=== PATIENT | female | born 1990 | race Caucasian/White ===

== ENCOUNTER 2019-01-05 14:59 | Inpatient (IN) ==
[2019-01-05] MEDS ORDERED: SODIUM CHLORIDE 0.9% 1000ML 1,000 ML IV ONE (15:41)
[2019-01-05] MEDS ORDERED: ONDANSETRON INJ 2 MG/ML 2 ML VIAL IV STA (16:02)
[2019-01-05] MEDS ORDERED: MoRPHine SULFATE 4 MG/ML 1 ML CARP\\VIAL IV STA ×2 (16:02→21:18)
[2019-01-05] MEDS ORDERED: FLUCONAZOLE 200 MG/100 ML BAG IV SCH (16:15)
--- NOTE | 2019-01-05 16:20 | Emergency Department Note ---
History of Present Illness General Chief complaint: Dental/Oral Stated complaint: REFERRED FOR MOUTH PAIN, UNABLE TO EAT/DRINK History of Present Illness Maximum Pain Intensity: 10 This patient is a 28-year-old female, G2, P1 32 weeks , the presents to the emergency department with her mother for evaluation of severe pain and a film in her mouth that has been going on for the last 3 days. The patient saw her dentist and primary care physician. There were thoughts that this could possibly be a dental abscess, yeast or a viral infection. She has been put on nystatin swish and swallow, penicillin and acyclovir with no improvement. The patient has also been running a fever of 102 F. She has been taking Tylenol for pain. The patient has a history of cerebral palsy. The patient's mother admits that she does not brush her teeth very often. The pain is now going down her throat. Home Medications Home Medications Medication Instructions Recorded Confirmed Type PNV,calcium [id number] acid 1 tab PO QPM 01/05/19 01/05/19 History [ Plus (calcium carb)] albuterol sulfate 2.5 mg INHALATION Q4H PRN 01/05/19 01/05/19 History budesonide [Pulmicort] 2 puff INHALATION BID PRN 01/05/19 01/05/19 History fluoxetine 30 mg PO HS 01/05/19 01/05/19 History fluticasone propionate [Flovent 1 puff INHALATION Q12H 01/05/19 01/05/19 History HFA] folic acid 2 mg PO QPM 01/05/19 01/05/19 History levetiracetam [Keppra] 1,500 mg PO BID 01/05/19 01/05/19 History magnesium oxide 400 mg PO QPM 01/05/19 01/05/19 History nystatin 1 dose MUCOUS MEMBRANE QID 01/05/19 01/05/19 History Allergies Allergy/AdvReac Type Severity Reaction Status Date / Time Sulfa (Sulfonamide Allergy Mild Rash Verified 01/05/19 23:56 Antibiotics) escitalopram [From Lexapro] Allergy Rash Verified 01/05/19 23:56 CEFZIL Allergy Mild Swelling Uncoded 01/05/19 23:56 of Lip/Tongue/Throat Past Med/Surg History Medical History Cerebral palsy Social History Preferred Language: Cameroonian Communication Ability: Impaired Poly Area Supervisor Required: No Beliefs That Will Affect Care: None Current Living Situation: Family Other Information That Helps Us Care for You: No Feels Safe at Home: Yes Safety Concerns: Feels Safe At This Time Smoking Status: Never smoker Do You Dip or Chew Tobacco: No Second Hand Exposure: No Tobacco Cessation Education Requested by Patient: No Hx Alcohol Use: No Hx Substance Use: No Review of Systems A total of 10 systems reviewed and were otherwise negative Physical Exam Vital Signs Vital Signs - 24 hr 01/05/19 15:03 01/05/19 18:22 01/05/19 21:30 Temperature 36.9 C Temperature Source Axillary Sepsis Recent Fever Within 48 Hours No Sepsis New/Unexplained Change in Mental Status No Sepsis Action Taken by Nursing No Action Required Pulse Rate 118 H Pulse Rate [Right Finger] 96 H 99 H Pulse Rhythm Regular Pulse Rhythm [Right Finger] Pulse Strength Normal Pulse Strength [Right Finger] Respiratory Rate 20 20 20 Respiratory Effort / Characteristics Non-Labored Spontaneous Non-Labored Respiratory Depth Normal Normal Respiratory Pattern Regular Blood Pressure 108/70 Blood Pressure [Right Arm] 120/75 92/60 L Blood Pressure Mean 82 Blood Pressure Mean [Right Arm] 90 70 Blood Pressure Position Sitting Blood Pressure Position [Right Arm] Pulse Oximetry 95 97 95 Oxygen Delivery Method Room Air Room Air Room Air 01/05/19 23:11 01/05/19 23:53 01/06/19 00:19 Temperature 36.8 C 36.8 C Temperature Source Axillary Sepsis Recent Fever Within 48 Hours Sepsis New/Unexplained Change in Mental Status Sepsis Action Taken by Nursing Pulse Rate 99 H 103 H Pulse Rate [Right Finger] 103 H Pulse Rhythm Pulse Rhythm [Right Finger] Regular Pulse Strength Pulse Strength [Right Finger] Normal Respiratory Rate 20 18 18 Respiratory Effort / Characteristics Non-Labored Respiratory Depth Normal Respiratory Pattern Blood Pressure 91/52 L 106/61 Blood Pressure [Right Arm] 106/61 Blood Pressure Mean Blood Pressure Mean [Right Arm] 76 Blood Pressure Position Blood Pressure Position [Right Arm] Sitting Pulse Oximetry 95 99 Oxygen Delivery Method Room Air Room Air Constitutional WD/WN, vitals as above Eyes EOM intact bilaterally ENMT There is a white plaque noted to the tongue and gums that is diffuse throughout the mouth and buccal area. The gums themselves are friable. There is a foul odor noted. Uvula midline. Neck trachea midline Respiratory normal respiratory effort, lungs clear to auscultation Cardiovascular RRR, no murmur, no edema Gastrointestinal (Abdomen) normal bowel sounds, soft, nontender, no hepatosplenomegaly Musculoskeletal Strength 4/5 throughout. Skin no rashes, warm and dry Neurologic Alert and oriented x3. Movements slightly choreal-like in nature Psychiatric Acting appropriately Lymphatic Lymphadenopathy in the anterior cervical chain and submandibular region bilaterally. Course Patient was seen and examined Vital signs including blood pressure were reviewed medications list was verified with patient Labs were obtained, and a saline lock was established The patient was ordered morphine 4 mg IV, fluconazole 200 mg IV, Zofran 4 mg IV and 1 L of normal saline The patient was reevaluated and more comfortable. We discussed her work-up. She and her mother voiced understanding, and were in agreement with the plan. The case was discussed with obstetrics. They agreed to admit the patient. The patient required 1 more additional dose of morphine 4 mill grams IV for pain She will be admitted for further treatment Consultations Consultation #1: Dr. Teixeira Administered Medications Fluconazole (Diflucan) 200 mg in 100 mls @ 100 mls/hr IV UD LUCIE Stop: 01/15/19 16:14 Last Infusion: 01/05/19 18:23 Dose: 0 mls/hr Documented by: [id number] Admin: 01/05/19 16:49 Dose: 100 mls/hr Documented by: [id number] Discontinued Medications Sodium Chloride (Nss 1000ml) 1,000 mls @ 999 mls/hr IV .Q1H1M ONE Stop: 01/05/19 16:41 Last Infusion: 01/05/19 17:34 Dose: 0 mls/hr Documented by: [id number] Admin: 01/05/19 16:31 Dose: 999 mls/hr Documented by: [id number] Morphine Sulfate (Morphine Sulfate) 4 mg IV NOW STA Stop: 01/05/19 16:03 Last Admin: 01/05/19 16:32 Dose: 4 mg Documented by: [id number] Morphine Sulfate (Morphine Sulfate) 4 mg IV NOW STA Stop: 01/05/19 21:19 Last Admin: 01/05/19 21:28 Dose: 4 mg Documented by: [id number] Ondansetron HCl (Zofran) 4 mg IV NOW STA Stop: 01/05/19 16:03 Last Admin: 01/05/19 16:31 Dose: 4 mg Documented by: [id number] Medical Decision Making Medical Records Attestation: I reviewed the patient's medical records. Home Medications Current Medication List: was personally reviewed by me Laboratory Data Attestation: I reviewed the patient's lab results. Result diagrams: 01/05/19 16:01 01/05/19 16:01 Lab Results 01/05/19 01/05/19 01/05/19 Range/Units 16:01 16:01 16:01 WBC 6.96 (4.8-10.8) K/uL RBC 3.86 L (4.2-5.4) M/uL Hgb 10.7 L (12.0-16.0) g/dL Hct 32.4 L (37-47) % MCV 83.9 (80-100) fL MCH 27.7 (25-34) pg MCHC 33.0 (32-36) g/dL RDW Std Deviation 40.9 (36.4-46.3) fL RDW Coeff of Brenda 13.6 (11.5-14.5) % Plt Count 220 (130-400) K/uL MPV 10.5 H (7.4-10.4) fL Immature Gran % (Auto) 2.2 % Neut % (Auto) 40.1 % Lymph % (Auto) 36.6 % Nolan % (Auto) 19.1 % Eos % (Auto) 0.0 % Baso % (Auto) 2.0 % Immature Gran # (Auto) 0.15 H (0.00-0.02) K/uL Neut # (Auto) 2.79 (1.4-6.5) K/uL Lymph # (Auto) 2.55 (1.2-3.4) K/uL Nolan # (Auto) 1.33 H (0.11-0.59) K/uL Eos # (Auto) 0.00 (0-0.5) K/uL Baso # (Auto) 0.14 (0-0.2) K/uL Absolute Nucleated RBC 0.02 H (0-0) K/uL Nucleated RBC % (auto) 0.2 % Sodium 137 (136-145) mmol/L Potassium 3.4 L (3.5-5.1) mmol/L Chloride 102 (98-107) mmol/L Carbon Dioxide 29 (21-32) mmol/L Anion Gap 6.0 (3-11) BUN 2 L (7-18) mg/dl Creatinine 0.44 L (0.6-1.2) mg/dl Est Cr Clr Drug Dosing 132.8 ml/min Est GFR ( Amer) > 150.0 Est GFR (Non-Af Amer) 137.4 BUN/Creatinine Ratio 5.2 L (10-20) Glucose 81 (70-99) mg/dl Calcium 8.3 L (8.5-10.1) mg/dl Total Bilirubin 1.1 H (0.2-1) mg/dl Direct Bilirubin 0.8 H (0-0.2) mg/dl AST 576 H (15-37) U/L ALT 534 H (12-78) U/L Alkaline Phosphatase 146 H (45-117) U/L Total Protein 6.8 (6.4-8.2) gm/dl Albumin 2.4 L (3.4-5.0) gm/dl Globulin 4.4 H (2.5-4.0) gm/dl Albumin/Globulin Ratio 0.5 L (0.9-2) Urine Color Urine Appearance (Clear) Urine pH (4.5-7.5) Ur Specific Talmage (1.000-1.030) Urine Protein (Negative) Urine Glucose (UA) (Negative) Urine Ketones (Negative) Urine Blood (Negative) Urine Nitrite (Negative) Urine Bilirubin (Negative) Urine Urobilinogen (Negative) Ur Leukocyte Esterase (Negative) Acetaminophen < 2 L (10-30) ug/ml Hep Bs Antigen (Neg) Hep Bs Antibody Hep Bs Antibody, Quant (>or=10mIU/mL Immune) mIU/mL Hepatitis C Antibody (Neg) Monoscreen (Negative) HIV 1&2 Ab/P24 Ag 4thGn (Neg) 01/05/19 01/05/19 01/05/19 Range/Units 16:01 16:01 17:39 WBC (4.8-10.8) K/uL RBC (4.2-5.4) M/uL Hgb (12.0-16.0) g/dL Hct (37-47) % MCV (80-100) fL MCH (25-34) pg MCHC (32-36) g/dL RDW Std Deviation (36.4-46.3) fL RDW Coeff of Brenda (11.5-14.5) % Plt Count (130-400) K/uL MPV (7.4-10.4) fL Immature Gran % (Auto) % Neut % (Auto) % Lymph % (Auto) % Nolan % (Auto) % Eos % (Auto) % Baso % (Auto) % Immature Gran # (Auto) (0.00-0.02) K/uL Neut # (Auto) (1.4-6.5) K/uL Lymph # (Auto) (1.2-3.4) K/uL Nolan # (Auto) (0.11-0.59) K/uL Eos # (Auto) (0-0.5) K/uL Baso # (Auto) (0-0.2) K/uL Absolute Nucleated RBC (0-0) K/uL Nucleated RBC % (auto) % Sodium (136-145) mmol/L Potassium (3.5-5.1) mmol/L Chloride (98-107) mmol/L Carbon Dioxide (21-32) mmol/L Anion Gap (3-11) BUN (7-18) mg/dl Creatinine (0.6-1.2) mg/dl Est Cr Clr Drug Dosing ml/min Est GFR ( Amer) Est GFR (Non-Af Amer) BUN/Creatinine Ratio (10-20) Glucose (70-99) mg/dl Calcium (8.5-10.1) mg/dl Total Bilirubin Cancelled (0.2-1) mg/dl Direct Bilirubin Cancelled (0-0.2) mg/dl AST Cancelled (15-37) U/L ALT Cancelled (12-78) U/L Alkaline Phosphatase Cancelled (45-117) U/L Total Protein Cancelled (6.4-8.2) gm/dl Albumin Cancelled (3.4-5.0) gm/dl Globulin (2.5-4.0) gm/dl Albumin/Globulin Ratio (0.9-2) Urine Color Yellow Urine Appearance Clear (Clear) Urine pH 7.0 (4.5-7.5) Ur Specific Talmage 1.004 (1.000-1.030) Urine Protein Negative (Negative) Urine Glucose (UA) Negative (Negative) Urine Ketones 1+ H (Negative) Urine Blood Negative (Negative) Urine Nitrite Negative (Negative) Urine Bilirubin Negative (Negative) Urine Urobilinogen Negative (Negative) Ur Leukocyte Esterase Negative (Negative) Acetaminophen (10-30) ug/ml Hep Bs Antigen (Neg) Hep Bs Antibody Hep Bs Antibody, Quant (>or=10mIU/mL Immune) mIU/mL Hepatitis C Antibody (Neg) Monoscreen Negative (Negative) HIV 1&2 Ab/P24 Ag 4thGn (Neg) 01/05/19 01/05/19 01/05/19 Range/Units 21:47 21:48 21:48 WBC (4.8-10.8) K/uL RBC (4.2-5.4) M/uL Hgb (12.0-16.0) g/dL Hct (37-47) % MCV (80-100) fL MCH (25-34) pg MCHC (32-36) g/dL RDW Std Deviation (36.4-46.3) fL RDW Coeff of Brenda (11.5-14.5) % Plt Count (130-400) K/uL MPV (7.4-10.4) fL Immature Gran % (Auto) % Neut % (Auto) % Lymph % (Auto) % Nolan % (Auto) % Eos % (Auto) % Baso % (Auto) % Immature Gran # (Auto) (0.00-0.02) K/uL Neut # (Auto) (1.4-6.5) K/uL Lymph # (Auto) (1.2-3.4) K/uL Nolan # (Auto) (0.11-0.59) K/uL Eos # (Auto) (0-0.5) K/uL Baso # (Auto) (0-0.2) K/uL Absolute Nucleated RBC (0-0) K/uL Nucleated RBC % (auto) % Sodium (136-145) mmol/L Potassium (3.5-5.1) mmol/L Chloride (98-107) mmol/L Carbon Dioxide (21-32) mmol/L Anion Gap (3-11) BUN (7-18) mg/dl Creatinine (0.6-1.2) mg/dl Est Cr Clr Drug Dosing ml/min Est GFR ( Amer) Est GFR (Non-Af Amer) BUN/Creatinine Ratio (10-20) Glucose (70-99) mg/dl Calcium (8.5-10.1) mg/dl Total Bilirubin 1.0 (0.2-1) mg/dl Direct Bilirubin 0.6 H (0-0.2) mg/dl AST 442 H (15-37) U/L ALT 440 H (12-78) U/L Alkaline Phosphatase 130 H (45-117) U/L Total Protein 6.0 L (6.4-8.2) gm/dl Albumin 2.3 L (3.4-5.0) gm/dl Globulin (2.5-4.0) gm/dl Albumin/Globulin Ratio (0.9-2) Urine Color Urine Appearance (Clear) Urine pH (4.5-7.5) Ur Specific Talmage (1.000-1.030) Urine Protein (Negative) Urine Glucose (UA) (Negative) Urine Ketones (Negative) Urine Blood (Negative) Urine Nitrite (Negative) Urine Bilirubin (Negative) Urine Urobilinogen (Negative) Ur Leukocyte Esterase (Negative) Acetaminophen (10-30) ug/ml Hep Bs Antigen Neg (Neg) Hep Bs Antibody Non-Immune Hep Bs Antibody, Quant 3.99 L (>or=10mIU/mL Immune) mIU/mL Hepatitis C Antibody Neg (Neg) Monoscreen (Negative) HIV 1&2 Ab/P24 Ag 4thGn Neg (Neg) Blood Pressure Blood Pressure Findings: Normal blood pressure MDM Narrative Differential diagnosis: Vicki esophagitis, thrush, viral infection, bacterial infection, leukoplakia, malignancy, dehydration, among others This patient is a 28-year-old female, 32 weeks the presents to the emergency department with oral plaque and severe pain. On exam, she does have a significant film throughout the mouth. She also had a reported fever. The patient was afebrile here. Her labs reveal significantly elevated LFTs. The etiology of this is unclear. There is no leukocytosis. The patient has been on acyclovir, penicillin and nystatin swish of swallow-none of which should significantly affect the LFTs. For this reason, and ultrasound, Tylenol level and hepatitis panel were ordered. Thankfully, the patient's platelet count is normal. Blood pressure is stable. No protein in the urine. I do not suspect HELLP syndrome. I do not feel comfortable sending the patient home as she is not tolerating p.o. For this reason, obstetrics was consulted and kindly agreed to admit the patient for further work-up and treatment. Impression & Plan Candidiasis of mouth and esophagus, Acute dehydration Discharge Plan Visit Data *Final* Discharge Date/Time: 01/05/19 23:11 Chief Complaint: Dental/Oral Stated Complaint: REFERRED FOR MOUTH PAIN, UNABLE TO EAT/DRINK ED Provider: Arsen Mao ED Midlevel Provider: Kary Gimenez Discharge Problem: Candidiasis of mouth and esophagus, Acute dehydration Patient Disposition: Admitted As Inpatient Discharge Instructions Interventions: ED Discharge Assessment Last Done: 01/05/19 23:11
[2019-01-05 16:40] LABS: Alanine Aminotransferase 534 U/L (12-78); Albumin Level 2.4 gm/dl (3.4-5.0); Aspartate Aminotransferase 576 U/L (15-37); BUN Creatinine Ratio 5.2 (10-20); Blood Urea Nitrogen 2 mg/dl (7-18); Calcium 8.3 mg/dl (8.5-10.1); Carbon Dioxide 29 mmol/L (21-32); Chloride 102 mmol/L (98-107); Creatinine Clr Calc Pharmacy 132.8 ml/min; Est GFR (African American) > 150.0; Est GFR (Non-African American) 137.4; Glucose 81 mg/dl (70-99); Potassium 3.4 mmol/L (3.5-5.1); Sodium 137 mmol/L (136-145)
[2019-01-05 16:43] LABS: Albumin Globulin Ratio 0.5 (0.9-2); Alkaline Phosphatase 146 U/L (45-117); Bilirubin,Total 1.1 mg/dl (0.2-1); Globulin 4.4 gm/dl (2.5-4.0); Total Protein 6.8 gm/dl (6.4-8.2)
[2019-01-05 16:47] LABS: Basophils # (auto) 0.14 K/uL (0-0.2); Hematocrit (blood only) 32.4 % (37-47); Hemoglobin 10.7 g/dL (12.0-16.0); Immature Granulocytes # (auto) 0.15 K/uL (0.00-0.02); Immature Granulocytes % (auto) 2.2 %; Lymphocytes # (auto) 2.55 K/uL (1.2-3.4); Lymphocytes % (auto) 36.6 %; Mean Corpuscular Volume 83.9 fL (80-100); Mean Platelet Volume 10.5 fL (7.4-10.4); Monocytes # (auto) 1.33 K/uL (0.11-0.59); Monocytes % (auto) 19.1 %; Neutrophils # (auto) 2.79 K/uL (1.4-6.5); Neutrophils % (auto) 40.1 %; Nucleated RBC # (auto) 0.02 K/uL (0-0); Nucleated RBC % (auto) 0.2 %; Platelet Count 220 K/uL (130-400); RDW Coefficient of Variation 13.6 % (11.5-14.5); RDW Standard Deviation 40.9 fL (36.4-46.3); Red Blood Count 3.86 M/uL (4.2-5.4); White Blood Count 6.96 K/uL (4.8-10.8)
[2019-01-05 17:53] LABS: Appearance Urine Clear (Clear); Bilirubin Urine Negative (Negative); Blood Urine Negative (Negative); Color Urine Yellow; Glucose Urine UA Negative (Negative); Ketones Urine 1+ (Negative); Leukocyte Esterase Urine Negative (Negative); Nitrite Urine Negative (Negative); Protein Urine Negative (Negative); Specific Gravity Urine 1.004 (1.000-1.030); Urobilinogen Urine Negative (Negative)
--- NOTE | 2019-01-05 18:26 | Emergency Department Note ---
ED Visit Note I did evaluate and examine this patient myself. I did guide management for the patient. I agree with the PA's assessment as discussed. Please see the PAs dictation for further details. I did independently review the ultrasound and blood work. The patient has an intractable infection to her mouth. She also has a significant bump in her LFTs. Platelets are normal. She is not hypertensive. She has no proteinuria. She will be hospitalized for further care. .
--- NOTE | 2019-01-05 18:28 | Ultrasound Report ---
US liver CLINICAL HISTORY: 28 years-old Female presenting with elevated LFTs. TECHNIQUE: Real-time grayscale and limited color Doppler ultrasound imaging of the abdomen limited to the right upper quadrant was performed. COMPARISON: CT from 2007. FINDINGS: Evaluation limited by suboptimal breath-holding and limited acoustic window due to the gravid uterus. Pancreas: Visualized portions of the pancreatic head and body normal. Liver: Normal echogenicity and echotexture. The liver measures 14.0 cm in maximal sagittal dimension. No sonographic evidence of hepatic mass. Main portal vein patent with normal directional flow. Biliary: No intrahepatic biliary ductal dilatation. Common bile duct measures up to 2 mm in diameter. Gallbladder: No evidence of gallstones, gallbladder wall thickening, gallbladder distention, or peric holecystic fluid or inflammatory change. Right kidney: Normal in appearance without evidence of hydronephrosis. Ascites: None. Other: None. IMPRESSION: No cholelithiasis or biliary ductal dilatation. Electronically signed by: Trey Sim M.D. 01/05/2019 6:26 PM
[2019-01-05 19:58] LABS: Bilirubin Direct 0.8 mg/dl (0-0.2)
[2019-01-05 22:39] LABS: Albumin Level 2.3 gm/dl (3.4-5.0); Bilirubin Direct 0.6 mg/dl (0-0.2)
[2019-01-05 22:49] LABS: Hepatitis B Surface Antibody Non-Immune
[2019-01-05 23:00] LABS: Hepatitis B Surface Antigen Neg (Neg)
[2019-01-05] MEDS: LACTATED RINGER'S 1,000 ML IV SCH (23:00)
[2019-01-05 23:28] LABS: Hepatitis C IgG 13Yrs+Old_Rflx Neg (Neg)
--- NOTE | 2019-01-05 23:28 | Ultrasound Report ---
US OB limited CLINICAL HISTORY: 28 years-old Female presenting with , , estimated date of delivery 06/2019 and gestational age 33 weeks 0 days. TECHNIQUE: Real-time grayscale and M-mode ultrasound imaging of the pelvis was performed using a herrera sabdominal probe. Color and spectral Doppler ultrasound imaging of the adnexa was also attempted. COMPARISON: None. FINDINGS: Bladder: Normal. Uterus: Single live intrauterine . size metrics: Femur length 6.2 cm corresponding to gestational age of 32 weeks 2 days. heart rate: 133 beats per minute. Orientation: Cephalic pre sentation. Amniotic fluid volume: Normal amniotic fluid volume. HERMINIO: 11.3 cm. Placenta: Anterior fund al placental implantation. No perigestational fluid to suggest hemorrhage. Cervix: Not visualized. Ce rvical length: Not measurable due to poor visualization. Right adnexa: Right ovary: Not visualized. Left adnexa: Left ovary: Not visualized. Other: No large volume free fluid. IMPRESSION: Normal appearance of the single live third trimester intrauterine with a composite gestatio nal age of 32 weeks 2 days and estimated date of delivery 02/28/2019. This is concordant with the know n dates. Electronically signed by: Trey Sim M.D. 01/05/2019 11:27 PM
[2019-01-06] MEDS ORDERED: BUDESONIDE 0.5 MG/2 ML VIAL (PULMICORT) INH PRN (00:16)
[2019-01-06] MEDS ORDERED: ALBUTEROL 0.083% NEBU SOLN 3 ML VIAL INH PRN (00:16)
[2019-01-06] MEDS ORDERED: FLUOXETINE HCL 10 MG CAP PO SCH (01:00)
[2019-01-06] MEDS: PRENATAL VITAMIN 1 TAB PO SCH ×2 (01:47→21:15)
[2019-01-06] MEDS: MAGNESIUM OXIDE 400 MG TAB PO SCH ×2 (01:47→22:24)
[2019-01-06] MEDS: FOLIC ACID 1 MG TAB PO SCH ×2 (01:48→21:14)
[2019-01-06] MEDS: levETIRAcetam 500 MG TAB PO SCH ×3 (01:50→22:22)
[2019-01-06] MEDS ORDERED: ACETAMINOPHEN 325 MG TAB PO PRN (02:18)
--- NOTE | 2019-01-06 03:49 | History and Physical Report ---
DATE OF ADMISSION: 01/05/2019 REASON FOR ADMISSION: Oral pain, unable to eat or drink. HISTORY OF PRESENT ILLNESS: The patient is a 28-year-old 2, para 1 32 weeks' , who presents with several day history of oral pain. She was seen by her dentist and was seen at an urgent care in [place]. She was started on oral Nystatin swish and swallow, penicillin and acyclovir, has no improvement and she was referred back to the ER for evaluation. PAST MEDICAL HISTORY: Significant for cerebral palsy, history of x1 10 months ago at 38 weeks with no complications. SURGICAL HISTORY: Positive for shoulder surgery in the past, tonsils and adenoids. ALLERGIES: SULFA AND CEFZIL. MEDICATIONS: Ventolin, Pulmicort, Zyrtec, Flovent, hydrochlorothiazide, Atrovent, Singulair, Prilosec, Tamiflu, Zantac and prednisone. SOCIAL HISTORY: Denies smoking, alcohol or drug use. Lives with a boyfriend who is an ex-prisoner. Has multiple tattoos. VITAL SIGNS: Temperature 36.9, blood pressure 108/70, pulse is 82. PHYSICAL EXAMINATION: HEENT: There is large amount of white plaque all throughout the oral cavity into the deep oropharynx, possibly down to the esophagus, unable to visualize completely. ABDOMEN: Soft, it is gravid. There is no pain or tenderness. No obvious hepatosplenomegaly. SKIN: Warm and dry. No rash. NEUROLOGICALLY: Intact. LABORATORY DATA: The patient has a hemoglobin of 10.7, hematocrit 32.4, white blood cell count 6.96. Chemistries: Potassium 3.4, BUN 2, creatinine 0.44, total bilirubin is 1.1, direct bilirubin 0.8, AST 576, ALT 534, alkaline phosphatase 146, total protein 6.8. Urine specific gravity 1.004, 1+ ketones. Negative protein. Toxicology, Tylenol level less than 2. Hepatitis, herpes, HIV and mono screen is negative. All others are pending. ASSESSMENT: Oral candidiasis, possible esophageal, 32 weeks . PLAN: We will admit. Medical consult, ID consult, possible Dental consult to rule out abscess. We will continue to follow along with Medicine Service.
[2019-01-06] MEDS: FLUTICASONE HFA 110MCG INHALER INH SCH ×3 (07:19→21:14)
[2019-01-06] MEDS: NYSTATIN SUSP 500,000 U/5 ML UDC PO SCH ×4 (08:29→21:14)
[2019-01-06] MEDS: LACTATED RINGER'S 1,000 ML IV SCH ×2 (08:41→19:50)
[2019-01-06 09:42] LABS: Hematocrit (blood only) 29.2 % (37-47); Hemoglobin 9.7 g/dL (12.0-16.0); Mean Corpuscular Volume 84.1 fL (80-100); Mean Platelet Volume 9.9 fL (7.4-10.4); Platelet Count 202 K/uL (130-400); RDW Coefficient of Variation 13.8 % (11.5-14.5); Red Blood Count 3.47 M/uL (4.2-5.4); White Blood Count 8.37 K/uL (4.8-10.8)
[2019-01-06 09:57] LABS: Mean Corpuscular Hgb Conc 33.2 g/dL (32-36)
[2019-01-06 09:59] LABS: Blood Urea Nitrogen 3 mg/dl (7-18); Carbon Dioxide 23 mmol/L (21-32); Chloride 106 mmol/L (98-107); Potassium 3.3 mmol/L (3.5-5.1); Sodium 139 mmol/L (136-145)
[2019-01-06 10:00] LABS: Albumin Level 2.1 gm/dl (3.4-5.0); Aspartate Aminotransferase 312 U/L (15-37); BUN Creatinine Ratio 7.7 (10-20); Calcium 8.2 mg/dl (8.5-10.1); Creatinine Clr Calc Pharmacy 166.4 ml/min; Est GFR (African American) > 150.0; Est GFR (Non-African American) 145.4; Glucose 89 mg/dl (70-99); Uric Acid 4.4 mg/dl (2.6-7.2)
[2019-01-06 10:20] LABS: Alanine Aminotransferase 372 U/L (12-78); Albumin Globulin Ratio 0.6 (0.9-2); Alkaline Phosphatase 124 U/L (45-117); Bilirubin Direct 0.9 mg/dl (0-0.2); Bilirubin,Total 1.2 mg/dl (0.2-1); Globulin 3.8 gm/dl (2.5-4.0); Total Protein 5.9 gm/dl (6.4-8.2)
[2019-01-06] MEDS: DEXAMETHASONE CONC 3.75 MG, NYSTATIN 30 ML, DiphenhydrAMINE Syrup 300 MG, ORA-SWEET SYR... PO SCH ×4 (10:26→22:25)
--- NOTE | 2019-01-06 10:39 | Infectious Disease Consult ---
Date of Consultation January 06, 2019 Assessment & Plan (1) Candidiasis of mouth and esophagus: 28-year-old female with cerebral palsy now 32 weeks and presents with acute oral pain, white oral exudate, and fever consistent with diagnosis of acute oral candidiasis. However must rule out possibility of acute herpetic infection, oral viral infection especially EBV and CMV. Given difficulty with antifungals in , have started patient on clotrimazole troches. Additional serologies and blood work ordered. Will follow. History of Present Illness Reason for Consultation: Oral thrush Attending Physician: Grey Teixeira MD History of Present Illness 28-year-old female with cerebral palsy, 32 weeks , presented to the hospital with 3-4 days of progressively worsening mouth pain with difficulty swallowing associated with fever and chills. She was seen at a local urgent care center and diagnosed with oral candidiasis, and was given penicillin, nystatin, and acyclovir. Symptoms progressively worsening and she was admitted here for further management. She is noted to be using Flovent as an outpatient. No obvious ill contacts. Allergies Allergy/AdvReac Type Severity Reaction Status Date / Time cefprozil Allergy Mild Swelling Verified 01/06/19 01:26 of Lip/Tongue/Throat Sulfa (Sulfonamide Allergy Mild Rash Verified 01/05/19 23:56 Antibiotics) escitalopram [From Lexapro] Allergy Rash Verified 01/05/19 23:56 Home Medications Home Medications Medication Instructions Recorded Confirmed Type PNV,calcium 35-hgvo-pivbo acid 1 tab PO QPM 01/05/19 01/05/19 History [ Plus (calcium carb)] albuterol sulfate 2.5 mg INHALATION Q4H PRN 01/05/19 01/05/19 History budesonide [Pulmicort] 2 puff INHALATION BID PRN 01/05/19 01/05/19 History fluoxetine 30 mg PO HS 01/05/19 01/05/19 History fluticasone propionate [Flovent 1 puff INHALATION Q12H 01/05/19 01/05/19 History HFA] folic acid 2 mg PO QPM 01/05/19 01/05/19 History levetiracetam [Keppra] 1,500 mg PO BID 01/05/19 01/05/19 History magnesium oxide 400 mg PO QPM 01/05/19 01/05/19 History nystatin 1 dose MUCOUS MEMBRANE QID 01/05/19 01/05/19 History Patient History Medical History Cerebral palsy Social History Preferred Language: Luxembourgish Communication Ability: Impaired Food And Beverage Order Clerk Required: No Beliefs That Will Affect Care: None Current Living Situation: Family Other Information That Helps Us Care for You: No Feels Safe at Home: Yes Safety Concerns: Feels Safe At This Time Smoking Status: Never smoker Do You Dip or Chew Tobacco: No Second Hand Exposure: No Tobacco Cessation Education Requested by Patient: No Hx Alcohol Use: No Hx Substance Use: No Review of Systems Review of Systems: All systems reviewed & are unremarkable except as noted in HPI & below Physical Exam Constitutional: WD/WN, vitals as above comfortable; no acute distress Eyes: PERRL, conjunctivae normal, anicteric sclerae ENMT: external ear and nose normal, oropharynx normal Neck: trachea midline, no thyromegaly neck nontender Respiratory: normal respiratory effort, lungs clear to auscultation normal percussion; does not use accessory muscles Cardiovascular: Rate/Rhythm: regular rate and regular rhythm Heart Sounds: normal S1 and normal S2; no gallop, no murmur and no cardiac rub Vessels: n ormal peripheral pulses; no JVD Gastrointestinal (Abdomen): normal bowel sounds, soft, nontender, no hepatosplenomegaly Musculoskeletal: no cyanosis or clubbing, extremities motor strength 5/5 Spine: thoracic spine normal to inspection and lumbar spine normal to inspection; no cervical spinal tenderness Skin: no rashes, warm and dry normal turgor; no lesions Neurologic: patellar DTR's 2+ bilat, sensation intact no focal motor deficits Psychiatric: A+Ox3, euthymic affect Orientation: cooperative Lymphatic: no cervical or axillary lymphadenopathy no inguinal lymphadenopathy Results & Data Vital Signs (Past 12 Hours) Vital Signs Temp Pulse Pulse Resp BP BP Pulse Ox 01/06/19 08:13 36.9 C 94 H 18 99/62 L 97 01/06/19 07:45 36.9 C 94 H 18 99/62 L 97 01/06/19 00:19 36.8 C 103 H 18 106/61 99 01/05/19 23:53 36.8 C 103 H 18 106/61 01/05/19 23:11 99 H 20 91/52 L 95 Laboratory Results Short CBC 01/05/19 01/06/19 Range/Units 16:01 09:19 WBC 6.96 8.37 (4.8-10.8) K/uL Hgb 10.7 L 9.7 L (12.0-16.0) g/dL Hct 32.4 L 29.2 L (37-47) % Plt Count 220 202 (130-400) K/uL BMP 01/05/19 01/06/19 16:01 09:19 Sodium 137 139 Potassium 3.4 L 3.3 L Chloride 102 106 Carbon Dioxide 29 23 BUN 2 L 3 L Creatinine 0.44 L 0.37 L Glucose 81 89 Calcium 8.3 L 8.2 L Liver Function 01/05/19 01/05/19 01/05/19 Range/Units 16:01 16:01 21:48 Total Bilirubin 1.1 H Cancelled 1.0 (0.2-1) mg/dl Direct Bilirubin 0.8 H Cancelled 0.6 H (0-0.2) mg/dl AST 576 H Cancelled 442 H (15-37) U/L ALT 534 H Cancelled 440 H (12-78) U/L Alkaline Phosphatase 146 H Cancelled 130 H (45-117) U/L Albumin 2.4 L Cancelled 2.3 L (3.4-5.0) gm/dl 01/06/19 Range/Units 09:19 Total Bilirubin 1.2 H (0.2-1) mg/dl Direct Bilirubin 0.9 H (0-0.2) mg/dl AST 312 H (15-37) U/L ALT 372 H (12-78) U/L Alkaline Phosphatase 124 H (45-117) U/L Albumin 2.1 L (3.4-5.0) gm/dl Urine 01/05/19 Range/Units 17:39 Urine Color Yellow Urine Appearance Clear (Clear) Urine pH 7.0 (4.5-7.5) Ur Specific [place] 1.004 (1.000-1.030) Urine Protein Negative (Negative) Urine Glucose (UA) Negative (Negative) Diagnostic Findings Microbiology 01/05/19 15:45 Throat Group A Streptococcus Rapid Screen - Final Specimen negative for Group A Beta Strep by rapid method. Culture report to follow. 01/05/19 15:45 Throat Group A Beta-Hemolytic Strep Cult - Preliminary No beta strep isolated to date. 01/05/19 15:55 Face Gram Stain - Final 01/05/19 15:55 Face Aerobic and Anaerobic Culture - Preliminary Alpha strep US liver CLINICAL HISTORY: 28 years-old Female presenting with elevated LFTs. TECHNIQUE: Real-time grayscale and limited color Doppler ultrasound imaging of the abdomen limited to the right upper quadrant was performed. COMPARISON: CT from 2007. FINDINGS: Evaluation limited by suboptimal breath-holding and limited acoustic window due to the gravid uterus. Pancreas: Visualized portions of the pancreatic head and body normal. Liver: Normal echogenicity and echotexture. The liver measures 14.0 cm in maximal sagittal dimension. No sonographic evidence of hepatic mass. Main portal vein patent with normal directional flow. Biliary: No intrahepatic biliary ductal dilatation. Common bile duct measures up to 2 mm in diameter. Gallbladder: No evidence of gallstones, gallbladder wall thickening, gallbladder distention, or pericholecystic fluid or inflammatory change. Right kidney: Normal in appearance without evidence of hydronephrosis. Ascites: None. Other: None. IMPRESSION: No cholelithiasis or biliary ductal dilatation. Electronically signed by: Trey Sim M.D. 01/05/2019 6:26 PM Dictated: 01/05/191824 Transcribed: 01/05/191824
[2019-01-06 10:51] LABS: Fibrinogen 428 mg/dl (184-400)
[2019-01-06 10:53] LABS: D Dimer 3800 ug/L FEU (0-500)
[2019-01-06 11:05] LABS: Basophils # (auto) 0.08 K/uL (0-0.2); Echinocytes 1+; Eosinophils # (auto) 0.01 K/uL (0-0.5); Eosinophils % (auto) 0.1 %; Giant Platelets 1+; Immature Granulocytes # (auto) 0.13 K/uL (0.00-0.02); Immature Granulocytes % (auto) 1.6 %; Lymphocytes # (auto) 3.39 K/uL (1.2-3.4); Lymphocytes % (auto) 40.5 %; Monocytes # (auto) 0.96 K/uL (0.11-0.59); Monocytes % (auto) 11.5 %; Neutrophils % (auto) 45.3 %
[2019-01-06] MEDS: CLOTRIMAZOLE 10 MG TROCHE BUCCAL SCH ×4 (11:47→22:24)
--- NOTE | 2019-01-06 12:08 | Hospitalist Consultation ---
Date of Consultation January 06, 2019 History of Present Illness Attending Physician: Grey Teixeira MD Allergies Allergy/AdvReac Type Severity Reaction Status Date / Time cefprozil Allergy Mild Swelling Verified 01/06/19 01:26 of Lip/Tongue/Throat Sulfa (Sulfonamide Allergy Mild Rash Verified 01/05/19 23:56 Antibiotics) escitalopram [From Lexapro] Allergy Rash Verified 01/05/19 23:56 Home Medications Home Medications Medication Instructions Recorded Confirmed Type PNV,calcium 15-tmgu-tjznk acid 1 tab PO QPM 01/05/19 01/05/19 History [ Plus (calcium carb)] albuterol sulfate 2.5 mg INHALATION Q4H PRN 01/05/19 01/05/19 History budesonide [Pulmicort] 2 puff INHALATION BID PRN 01/05/19 01/05/19 History fluoxetine 30 mg PO HS 01/05/19 01/05/19 History fluticasone propionate [Flovent 1 puff INHALATION Q12H 01/05/19 01/05/19 History HFA] folic acid 2 mg PO QPM 01/05/19 01/05/19 History levetiracetam [Keppra] 1,500 mg PO BID 01/05/19 01/05/19 History magnesium oxide 400 mg PO QPM 01/05/19 01/05/19 History nystatin 1 dose MUCOUS MEMBRANE QID 01/05/19 01/05/19 History Patient History Medical History Cerebral palsy Social History Preferred Language: Panamanian Communication Ability: Impaired Bookbinding Machine Operator Required: No Beliefs That Will Affect Care: None Current Living Situation: Family Other Information That Helps Us Care for You: No Feels Safe at Home: Yes Safety Concerns: Feels Safe At This Time Smoking Status: Never smoker Do You Dip or Chew Tobacco: No Second Hand Exposure: No Tobacco Cessation Education Requested by Patient: No Hx Alcohol Use: No Hx Substance Use: No Results & Data Vital Signs (Past 12 Hours) Vital Signs Temp Pulse Pulse Resp BP BP Pulse Ox 01/06/19 08:13 36.9 C 94 H 18 99/62 L 97 01/06/19 07:45 36.9 C 94 H 18 99/62 L 97 01/06/19 00:19 36.8 C 103 H 18 106/61 99
--- NOTE | 2019-01-06 12:36 | Hospitalist Progress Note ---
Date of Service January 06, 2019 Assessment & Plan (1) Abnormal LFTs (liver function tests): Liver function noted to be significantly elevated: AST [phone] ALT 534-440-372 Alkaline phosphatase 146-130-124 Elevated LDH 250 Bilirubinemia with total bilirubin 1.2, direct bilirubin 0.9 Normal lipase Liver ultrasound unremarkable: No cholelithiasis or biliary ductal dilatation Medication list reviewed, patient was treated with acyclovir/may cause elevation of LFTs, but lab abnormally appears to be unusually high, especially given her third trimester of abnormal liver function should be taken under serious consideration Ask GI team to evaluate, case briefly discussed with GI Discussed with on-call AQUATIC DIRECTOR Given the evidence of worsening liver function, Without any direct cause identified, 2 weeks patient should be transf erred to tertiary care-should be treated as a high risk , Also patient should be in a center where ICU available Present on Admission?: Yes (2) Elevated d-dimer: (3) Third trimester at less than 36 weeks: 32 weeks , Continue to follow OB recommendation Concern regarding abnormal liver function test, abnormal d-dimer, FDP Patient will need to be transferred to higher level of care, for high risk (4) Candidiasis of mouth and esophagus: (5) Acute dehydration: (6) Seizure disorder: History of cerebral palsy/seizure disorder Keppra had to be kept on hold, secondary to abnormal liver function High risk for breakthrough seizure Recommend transfer to tertiary care (7) Depression: SSRI kept on hold secondary to abnormal liver function CODE STATUS: Full code Disposition: Patient is under AQUATIC DIRECTOR service, Recommend transfer to tertiary care, complicated /multiple medical issues, 32 weeks Subjective Patient seen in room 431 Complains of pain, burning in mouth, and throat No complaint of shortness of breath, no headache, no blurred vision No complaint of nausea vomiting, or abdominal pain Physical Exam Physical Exam: GENERAL: No sign of distress, HEENT: Sclera nonicteric, Normal oral mucosa, neck: No JVD, no thyromegaly, trachea midline Lungs: Clear to auscultate, no wheeze or rales Cardiovascular: Regular S1 and S2, no murmur or gallop, no JVD, no lower extremity edema Abdomen: Soft, gravid uterus, no right upper quadrant tenderness, bowel sounds active Neuro: Cerebral palsy, with chronic contraction, movement of extremities, Psych: Alert awake oriented x3: Euthymic Results & Data Vital Signs (Past 12 Hours) Vital Signs Temp Pulse Pulse Resp BP BP Pulse Ox 01/06/19 08:13 36.9 C 94 H 18 99/62 L 97 01/06/19 07:45 36.9 C 94 H 18 99/62 L 97
--- NOTE | 2019-01-06 12:41 | Gastrointestinal Consultation ---
Date of Consultation January 06, 2019 History of Present Illness Reason for Consultation: elevated LFTs Requesting Physician: Joseph Attending Physician: Grey Teixeira MD History of Present Illness 28 year old female 32 weeks w/ history of CP who presented to the ED for evaluation of oral pain - admitted to [facility]-C[facility] APPLICATIONS ENGINEER service. GI asked to elevated for elevated LFTS TB: 1.1 --> 1 --> 1.2 AST: 576 --> 442--> 312 ALT: 534 --> 440 --> 372 ALKP: 146 --> 130 --> 124 ABD US: Pancreas: Visualized portions of the pancreatic head and body normal.Liver: Normal echogenicity and echotexture. The liver measures 14.0 cm in maximal sagittal dimension. No sonographic evidence of hepatic mass. Main portal vein patent with normal directional flow.Biliary: No intrahepatic biliary ductal dilatation. Common bile duct measures up to 2 mm in diameter.Gallbladder: No evidence of gallstones, gallbladder wall thickening, gallbladder distention, or pericholecystic fluid or inflammatory change. Right kidney: Normal in appearance without evidence of hydronephrosis.Ascites: None. Allergies Allergy/AdvReac Type Severity Reaction Status Date / Time cefprozil Allergy Mild Swelling Verified 01/06/19 01:26 of Lip/Tongue/Throat Sulfa (Sulfonamide Allergy Mild Rash Verified 01/05/19 23:56 Antibiotics) escitalopram [From Lexapro] Allergy Rash Verified 01/05/19 23:56 Home Medications Home Medications Medication Instructions Recorded Confirmed Type PNV,calcium 14-uwsd-uogft acid 1 tab PO QPM 01/05/19 01/05/19 History [ Plus (calcium carb)] albuterol sulfate 2.5 mg INHALATION Q4H PRN 01/05/19 01/05/19 History budesonide [Pulmicort] 2 puff INHALATION BID PRN 01/05/19 01/05/19 History fluoxetine 30 mg PO HS 01/05/19 01/05/19 History fluticasone propionate [Flovent 1 puff INHALATION Q12H 01/05/19 01/05/19 History HFA] folic acid 2 mg PO QPM 01/05/19 01/05/19 History levetiracetam [Keppra] 1,500 mg PO BID 01/05/19 01/05/19 History magnesium oxide 400 mg PO QPM 01/05/19 01/05/19 History nystatin 1 dose MUCOUS MEMBRANE QID 01/05/19 01/05/19 History Patient History Medical History Cerebral palsy Social History Preferred Language: Mohawk Communication Ability: Impaired Fluorescent Lamp Replacer Required: No Beliefs That Will Affect Care: None Current Living Situation: Family Other Information That Helps Us Care for You: No Feels Safe at Home: Yes Safety Concerns: Feels Safe At This Time Smoking Status: Never smoker Do You Dip or Chew Tobacco: No Second Hand Exposure: No Tobacco Cessation Education Requested by Patient: No Hx Alcohol Use: No Hx Substance Use: No Results & Data Vital Signs (Past 12 Hours) Vital Signs Temp Pulse Pulse Resp BP BP Pulse Ox 01/06/19 08:13 36.9 C 94 H 18 99/62 L 97 01/06/19 07:45 36.9 C 94 H 18 99/62 L 97
[2019-01-06 14:12] LABS: Alanine Aminotransferase 347 U/L (12-78); Albumin Level 2.1 gm/dl (3.4-5.0); Aspartate Aminotransferase 266 U/L (15-37); BUN Creatinine Ratio 7.2 (10-20); Blood Urea Nitrogen 2 mg/dl (7-18); Calcium 8.3 mg/dl (8.5-10.1); Carbon Dioxide 25 mmol/L (21-32); Chloride 106 mmol/L (98-107); Creatinine Clr Calc Pharmacy 192.4 ml/min; Est GFR (African American) > 150.0; Est GFR (Non-African American) > 150.0; Glucose 72 mg/dl (70-99); Potassium 3.6 mmol/L (3.5-5.1); Sodium 140 mmol/L (136-145)
[2019-01-06 14:15] LABS: Albumin Globulin Ratio 0.6 (0.9-2); Alkaline Phosphatase 122 U/L (45-117); Bilirubin,Total 1.2 mg/dl (0.2-1); Globulin 3.6 gm/dl (2.5-4.0); Total Protein 5.7 gm/dl (6.4-8.2)
--- NOTE | 2019-01-06 14:30 | Consultation Report ---
DATE OF CONSULTATION: 01/06/2019 CHIEF COMPLAINT: Severe oral thrush and possible esophagitis. HISTORY OF PRESENT ILLNESS: This is a 28-year-old female with past medical history significant for cerebral palsy, epilepsy, GERD, mild intermittent asthma, allergic rhinitis, depressive disorder and posttraumatic stress disorder, who was admitted for severe thrush and severe throat pain, difficulty swallowing. The patient was treated by a dentist and PCP with nystatin swish and swallow, but it is not helping. She received a dose of IV Diflucan in the ER. The patient states she still has significant pain. Denies any fever. Denies any chest pain or shortness of breath. No nausea, no vomiting, no abdominal pain, no diarrhea. Currently, resting comfortably, hemodynamically stable. The patient is able to answer simple questions. ALLERGIES: CEFPROZIL, SULFA ANTIBIOTICS, LEXAPRO. PAST MEDICAL HISTORY: As mentioned above. PAST SURGICAL HISTORY: Left rotator cuff arthroscopy, adenoidectomy, revised horizontal eye muscle. MEDICATIONS: The patient is on Keppra 1000 mg p.o. b.i.d., Lexapro 10 mg p.o. daily with 5 mg tablet at bedtime, Ensure 1 can twice daily, albuterol 2 puffs 4 times a day, Neocon 1 tablet daily, folic acid 2 mg daily. FAMILY HISTORY: Significant for mother and father are alive. SOCIAL HISTORY: No alcohol, no drug use, no smoking. REVIEW OF SYMPTOMS: As per HPI. Rest of review of systems is negative. PHYSICAL EXAMINATION: GENERAL: The patient is thin and frail, not in acute distress. VITAL SIGNS: Temperature 36.9, pulse 94, respiratory rate 18, blood pressure 99/62, oxygen 97% room air. HEENT: No pallor, no icterus. Oral Mucosa: Thrush seen NECK: Some tenderness in the submandibular region. CARDIOVASCULAR: S1, S2 heard, regular rate and rhythm, no murmur, no gallop. RESPIRATORY SYSTEM: Normal AP diameter. No accessory muscle use. No wheezing, no crackles. ABDOMEN: 32 weeks . EXTREMITIES: No edema, no erythema. LABORATORY DATA: WBC 8.3, hemoglobin 9.7, hematocrit 29.2, platelets 202. Sodium 139, potassium 3.3, chloride 106, bicarbonate 23, BUN 3, creatinine 0.3, serum glucose 89. Uric acid 4.4, total bilirubin 1.2, direct bilirubin 0.9, AST 312, ALT 372, alkaline phosphatase 124, lipase 116. Urinalysis negative. HIV negative. MARIANA screen negative, hepatitis C antibody negative. Obstetrics ultrasound normal appearance with trimester , gestational age of 32 weeks and 2 days. Liver ultrasound, no cholelithiasis or biliary ductal dilatation. ASSESSMENT AND PLAN: This is a 28-year-old female who presents with oral candidiasis. 1. Oral candidiasis. Received a dose of IV Diflucan yesterday. Seen by ID. Recommended clotrimazole troches and also other viral studies, which we will follow.Possible oesophagitis. May need to consult GI. 2. 32 weeks . Management as per ADVANCED PRACTICE REGISTERED NURSE. 3. History of seizures, currently Keppra on hold. 4. Depression. Prozac on hold. 5. Asthma. On budesonide and nebs p.r.n. 6. Elevated LFTs.Elevated fibrin degraded products Needs close followup and discussion. Etiology unclear at this time. 7. Deep venous thrombosis prophylaxis, as per ADVANCED PRACTICE REGISTERED NURSE. MTDD
--- NOTE | 2019-01-06 15:24 | Progress Note ---
Date of Service January 06, 2019 Assessment & Plan (1) Abnormal LFTs (liver function tests): Pt with elevated LFT's and thrush pt clinically doing well no PIH symptoms LFT are trending down discussed with Chong GATES Plan and recommendation is expectant management Results & Data Vital Signs (Past 12 Hours) Vital Signs Temp Pulse Pulse Resp BP BP Pulse Ox 01/06/19 12:10 36.8 C 82 18 115/72 97 01/06/19 08:13 36.9 C 94 H 18 99/62 L 97 01/06/19 07:45 36.9 C 94 H 18 99/62 L 97
--- NOTE | 2019-01-06 17:23 | Ultrasound Report ---
US OB limited CLINICAL HISTORY: . Limited study to assess growth. COMPARISON STUDY: 01/05/2019 FINDINGS: A single alive fetus in cephalic presentation was identified. The placenta was posterior. T he maternal cervix was not well delineated. The heart rate is 122. The identical index was 12.9. The BPD measured 81 mm corresponding to an estimated postmenstrual age of 32 weeks and 4 days. The he patic, and measures 292 mm corresponding to an estimated postmenstrual age of 32 weeks and 2 days. Ab dominal circumference measured 284 mm corresponding to an estimated postmenstrual age of 32 weeks and 3 days. The femur measured 61 mm corresponding to an estimated postmenstrual age of 31 weeks and 3 d ays. The composite gestational age is 31 weeks 5 days +/- 1 week. The estimated weight is 1900 +/- 300 g. A detailed anatomic study was not performed. IMPRESSION: 1. Single live fetus in cephalic presentation. 2. The estimated postmenstrual age is 31 weeks 5 days +/- 1 week. Electronically signed by: Santos Estrada M.D. 01/06/2019 5:22 PM
[2019-01-06 20:32] LABS: Basophils # (auto) 0.05 K/uL (0-0.2); Basophils % (auto) 0.6 %; Eosinophils # (auto) 0.01 K/uL (0-0.5); Eosinophils % (auto) 0.1 %; Hematocrit (blood only) 28.5 % (37-47); Hemoglobin 9.2 g/dL (12.0-16.0); Immature Granulocytes # (auto) 0.12 K/uL (0.00-0.02); Immature Granulocytes % (auto) 1.5 %; Lymphocytes # (auto) 3.08 K/uL (1.2-3.4); Lymphocytes % (auto) 38.4 %; Mean Corpuscular Hgb Conc 32.3 g/dL (32-36); Mean Corpuscular Volume 84.6 fL (80-100); Mean Platelet Volume 9.9 fL (7.4-10.4); Monocytes # (auto) 0.75 K/uL (0.11-0.59); Monocytes % (auto) 9.3 %; Neutrophils # (auto) 4.02 K/uL (1.4-6.5); Neutrophils % (auto) 50.1 %; Platelet Count 241 K/uL (130-400); RDW Coefficient of Variation 13.8 % (11.5-14.5); RDW Standard Deviation 41.8 fL (36.4-46.3); Red Blood Count 3.37 M/uL (4.2-5.4); White Blood Count 8.03 K/uL (4.8-10.8)
[2019-01-06 20:49] LABS: Alanine Aminotransferase 298 U/L (12-78); Aspartate Aminotransferase 208 U/L (15-37); Bilirubin Direct 0.7 mg/dl (0-0.2); Blood Urea Nitrogen 2 mg/dl (7-18); Calcium 8.1 mg/dl (8.5-10.1); Carbon Dioxide 24 mmol/L (21-32); Chloride 107 mmol/L (98-107); Creatinine Clr Calc Pharmacy 205.2 ml/min; Est GFR (African American) > 150.0; Est GFR (Non-African American) > 150.0; Glucose Fasting 77 mg/dl (70-99); Potassium 3.1 mmol/L (3.5-5.1); Sodium 140 mmol/L (136-145)
[2019-01-06 20:52] LABS: Albumin Globulin Ratio 0.6 (0.9-2); Alkaline Phosphatase 116 U/L (45-117); Globulin 3.5 gm/dl (2.5-4.0); Total Protein 5.5 gm/dl (6.4-8.2)
[2019-01-07] MEDS: DEXAMETHASONE CONC 3.75 MG, NYSTATIN 30 ML, DiphenhydrAMINE Syrup 300 MG, ORA-SWEET SYR... PO SCH ×7 (00:18→23:44)
[2019-01-07] MEDS: LACTATED RINGER'S 1,000 ML IV SCH ×3 (02:22→19:35)
[2019-01-07 06:30] LABS: Basophils # (auto) 0.05 K/uL (0-0.2); Basophils % (auto) 0.6 %; Eosinophils # (auto) 0.02 K/uL (0-0.5); Eosinophils % (auto) 0.2 %; Immature Granulocytes % (auto) 2.3 %; Lymphocytes # (auto) 3.29 K/uL (1.2-3.4); Lymphocytes % (auto) 37.5 %; Mean Corpuscular Hgb Conc 33.3 g/dL (32-36); Mean Corpuscular Volume 82.8 fL (80-100); Mean Platelet Volume 9.6 fL (7.4-10.4); Monocytes # (auto) 0.87 K/uL (0.11-0.59); Monocytes % (auto) 9.9 %; Neutrophils # (auto) 4.35 K/uL (1.4-6.5); Neutrophils % (auto) 49.5 %; Platelet Count 239 K/uL (130-400); RDW Coefficient of Variation 13.6 % (11.5-14.5); RDW Standard Deviation 41.8 fL (36.4-46.3); Red Blood Count 3.26 M/uL (4.2-5.4); White Blood Count 8.78 K/uL (4.8-10.8)
[2019-01-07 06:38] LABS: Prothrombin Time 10.3 Seconds (9.0-12.0)
[2019-01-07 06:58] LABS: Alanine Aminotransferase 251 U/L (12-78); Albumin Level 1.9 gm/dl (3.4-5.0); Aspartate Aminotransferase 151 U/L (15-37); BUN Creatinine Ratio 4.8 (10-20); Bilirubin Direct 0.7 mg/dl (0-0.2); Blood Urea Nitrogen 1 mg/dl (7-18); Calcium 7.7 mg/dl (8.5-10.1); Carbon Dioxide 24 mmol/L (21-32); Chloride 107 mmol/L (98-107); Creatinine Clr Calc Pharmacy 246.3 ml/min; Est GFR (African American) > 150.0; Est GFR (Non-African American) > 150.0; Glucose 55 mg/dl (70-99); Sodium 140 mmol/L (136-145)
[2019-01-07 07:01] LABS: Albumin Globulin Ratio 0.5 (0.9-2); Alkaline Phosphatase 117 U/L (45-117); Bilirubin,Total 0.9 mg/dl (0.2-1); Globulin 3.7 gm/dl (2.5-4.0); Total Protein 5.6 gm/dl (6.4-8.2)
[2019-01-07] MEDS: CLOTRIMAZOLE 10 MG TROCHE BUCCAL SCH ×5 (07:27→23:45)
[2019-01-07] MEDS: NYSTATIN SUSP 500,000 U/5 ML UDC PO SCH ×4 (08:58→21:14)
[2019-01-07] MEDS: levETIRAcetam 500 MG TAB PO SCH ×2 (09:24→21:14)
[2019-01-07] MEDS: FLUTICASONE HFA 110MCG INHALER INH SCH ×2 (09:29→21:16)
--- NOTE | 2019-01-07 10:16 | Progress Note ---
Date of Service January 07, 2019 Assessment & Plan (1) Abnormal LFTs (liver function tests): HD #2 Pt doing well Reactive NST LFT's trending down will keep following LFTs Q 12 hrs Medicine service treating Pt for thrush Results & Data Vital Signs (Past 12 Hours) Vital Signs Temp Pulse Pulse Resp BP Pulse Ox 01/07/19 08:07 36.4 C L 86 86 14 96 01/07/19 03:00 36.4 C L 101 H 18 94/59 L 96 01/07/19 00:05 36.7 C 108 H 18 93/58 L 93
--- NOTE | 2019-01-07 11:41 | Gastrointestinal Consultation ---
Date of Consultation January 07, 2019 Assessment & Plan (1) Abnormal LFTs (liver function tests): 28 year old female, 32 weeks , admitted w/ oral yeast and inability to tolerate PO due to oral discomfort - GI was asked to evaluate the pt for abnormal LFTs. Denies RUQ pain, nausea, vomiting, black/bloody stools/emesis, pruritus, mental fogging. No examination she is awake, alert and oriented w/ appropriate recall. Normal TB and normal coagulation studies. DDX discussed: shock liver secondary to dehydration and inability to tolerate PO, infectious etiology (Hep A, B, C, E, CMV, EBV), acute fatty liver of (no evidence of fatty liver on ABD US) HELLP (medicine and ob-life skills specialist following) cholestasis of (denies pruritus, Tbili normal, no prior episodes) - ABD US negative - Would recommend daily LFTs, coagulation studies - If coagulation studies remain normal and LFTs continue to trend down likely viral/shock induced inflammation - If coagulation studies become elevated or LFTs rise GI would recommend transfer to a tertiary care center - Would recommend viral serology - Acute hepatitis panel and Hepatitis E - CMV IGM, IGG - EBV IGM, IGG - Would recommend to check bile acids - Maintenance fluids for hydration - Continued mental status evaluation Thank you for allowing us to participate in the care of this patient. Please call with any acute changes, questions or concerns. Please see addendum below with additional recommendation from my supervising physician. Supervising Physician Co-Signing Physician Notes I have seen and examined the patient and discussed the management with SLOAN Rogers. PE sig for MR, rrr no mrg, pulm ctab, abd - abd, ext- no rashes Downtrending lft's No complaints of pruritus, viral exposures. Agree with the Maru's assessment and plan in its entirety. History of Present Illness Reason for Consultation: elevated LFTs Requesting Physician: Joseph Attending Physician: Grey Teixeira MD History of Present Illness 28 year old female 32 weeks w/ history of CP who presented to the ED for evaluation of oral pain - admitted to [facility]. GI asked to elevated for elevated LFTS. Consult was initially placed yesterday, however, cancelled as there was discussion of pt transfer. This AM she reports ongoing oral discomfort. She denies any abdominal pain. No nausea, vomiting. Specifically denies RUQ. No change in urine/stools. Denies black/bloody stools. No pruritus. No fever, chills, CP, SOB TB: 1.1 --> 1 --> 1.2 --> 1.2 --> 1 --> 0.9 AST: 579 --> 442 --> 312 --> 266 --> 208 --> 151 ALT: 534 --> 440 --> 372 --> 347 --> 298 --> 251 ALKP: 146 --> 130 --> 124 --> 122 --> 116 --> 117 ABD US: Normal echogenicity and echotexture. The liver measures 14.0 cm in maximal sagittal dimension. No sonographic evidence of hepatic mass. Main portal vein patent with normal directional flow. Biliary: No intrahepatic biliary ductal dilatation. Common bile duct measures up to 2 mm in diameter. Gallbladder: No evidence of gallstones, gallbladder wall thickening, gallbladder distention, or pericholecystic fluid or inflammatory change. Right kidney: Normal in appearance without evidence of hydronephrosis. Ascites: None. Allergies Allergy/AdvReac Type Severity Reaction Status Date / Time cefprozil Allergy Mild Swelling Verified 01/06/19 01:26 of Lip/Tongue/Throat Sulfa (Sulfonamide Allergy Mild Rash Verified 01/05/19 23:56 Antibiotics) escitalopram [From Lexapro] Allergy Rash Verified 01/05/19 23:56 Home Medications Home Medications Medication Instructions Recorded Confirmed Type PNV,calcium [id number] acid 1 tab PO QPM 01/05/19 01/05/19 History [ Plus (calcium carb)] albuterol sulfate 2.5 mg INHALATION Q4H PRN 01/05/19 01/05/19 History budesonide [Pulmicort] 2 puff INHALATION BID PRN 01/05/19 01/05/19 History fluoxetine 30 mg PO HS 01/05/19 01/05/19 History fluticasone propionate [Flovent 1 puff INHALATION Q12H 01/05/19 01/05/19 History HFA] folic acid 2 mg PO QPM 01/05/19 01/05/19 History levetiracetam [Keppra] 1,500 mg PO BID 01/05/19 01/05/19 History magnesium oxide 400 mg PO QPM 01/05/19 01/05/19 History nystatin 1 dose MUCOUS MEMBRANE QID 01/05/19 01/05/19 History Patient History Medical History Cerebral palsy Social History Preferred Language: Azeri Communication Ability: Impaired Railway Engineer Required: No Beliefs That Will Affect Care: None Current Living Situation: Family Other Information That Helps Us Care for You: No Feels Safe at Home: Yes Safety Concerns: Feels Safe At This Time Smoking Status: Never smoker Do You Dip or Chew Tobacco: No Second Hand Exposure: No Tobacco Cessation Education Requested by Patient: No Hx Alcohol Use: No Hx Substance Use: No Review of Systems Constitutional: no fever, no body aches, no weakness, no weight loss and no weight gain Ear, Nose, Mouth, Throat: + dry mouth and + pain with swallowing Respiratory: no cough, no dyspnea, no pain on inspiration and no wheezing Cardiovascular: no chest pain, no radiating jaw, neck or arm pain, no dyspnea on exertion and no palpitations Gastrointestinal: + pain with swallowing; no abdominal pain, no belching, no bloating, no early satiety, no heartburn, no nausea, no vomiting, no coffee ground emesis, no hematemesis, no dysphagia, no cramping, no excessive flatulence, no change in bowel habits, no change in stools, no constipation, no diarrhea/loose stools, no fecal incontinence, no constant urge to pass stools, no blood in stools, no melena and no problem reported Physical Exam Constitutional: WD/WN, vitals as above Respiratory: normal respiratory effort, lungs clear to auscultation Cardiovascular: RRR, no murmur, no edema Gastrointestinal (Abdomen): normal bowel sounds, soft, nontender, no hepatosplenomegaly Results & Data Vital Signs (Past 12 Hours) Vital Signs Temp Pulse Pulse Resp BP Pulse Ox 01/07/19 08:07 36.4 C L 86 86 14 96 01/07/19 03:00 36.4 C L 101 H 18 94/59 L 96 01/07/19 00:05 36.7 C 108 H 18 93/58 L 93 Laboratory Results 04/24/19 04/24/19 04/24/19 Range/Units 05:56 05:56 05:56 WBC 8.78 (4.8-10.8) K/uL RBC 3.26 L (4.2-5.4) M/uL Hgb 9.0 L (12.0-16.0) g/dL Hct 27.0 L (37-47) % MCV 82.8 (80-100) fL MCH 27.6 (25-34) pg MCHC 33.3 (32-36) g/dL RDW Std Deviation 41.8 (36.4-46.3) fL RDW Coeff of Brenda 13.6 (11.5-14.5) % Plt Count 239 (130-400) K/uL MPV 9.6 (7.4-10.4) fL Immature Gran % (Auto) 2.3 % Neut % (Auto) 49.5 % Lymph % (Auto) 37.5 % [place] % (Auto) 9.9 % Eos % (Auto) 0.2 % Baso % (Auto) 0.6 % Immature Gran # (Auto) 0.20 H (0.00-0.02) K/uL Neut # (Auto) 4.35 (1.4-6.5) K/uL Lymph # (Auto) 3.29 (1.2-3.4) K/uL [place] # (Auto) 0.87 H (0.11-0.59) K/uL Eos # (Auto) 0.02 (0-0.5) K/uL Baso # (Auto) 0.05 (0-0.2) K/uL PT 10.3 (9.0-12.0) Seconds INR 1.0 (0.9-1.1) Sodium 140 (136-145) mmol/L Potassium 3.0 L (3.5-5.1) mmol/L Chloride 107 (98-107) mmol/L Carbon Dioxide 24 (21-32) mmol/L Anion Gap 9.0 (3-11) BUN 1 L (7-18) mg/dl Creatinine 0.25 L (0.6-1.2) mg/dl Est Cr Clr Drug Dosing 246.3 ml/min Est GFR ( Amer) > 150.0 Est GFR (Non-Af Amer) > 150.0 BUN/Creatinine Ratio 4.8 L (10-20) Glucose 55 L (70-99) mg/dl Fasting Glucose (70-99) mg/dl Calcium 7.7 L (8.5-10.1) mg/dl Total Bilirubin 0.9 (0.2-1) mg/dl Direct Bilirubin 0.7 H (0-0.2) mg/dl AST 151 H (15-37) U/L ALT 251 H (12-78) U/L Alkaline Phosphatase 117 (45-117) U/L Lactate Dehydrogenase (84-246) U/L Total Protein 5.6 L (6.4-8.2) gm/dl Albumin 1.9 L (3.4-5.0) gm/dl Globulin 3.7 (2.5-4.0) gm/dl Albumin/Globulin Ratio 0.5 L (0.9-2) 01/06/19 01/06/19 01/06/19 Range/Units 20:10 20:10 20:10 WBC 8.03 (4.8-10.8) K/uL RBC 3.37 L (4.2-5.4) M/uL Hgb 9.2 L (12.0-16.0) g/dL Hct 28.5 L (37-47) % MCV 84.6 (80-100) fL MCH 27.3 (25-34) pg MCHC 32.3 (32-36) g/dL RDW Std Deviation 41.8 (36.4-46.3) fL RDW Coeff of Brenda 13.8 (11.5-14.5) % Plt Count 241 (130-400) K/uL MPV 9.9 (7.4-10.4) fL Immature Gran % (Auto) 1.5 % Neut % (Auto) 50.1 % Lymph % (Auto) 38.4 % [place] % (Auto) 9.3 % Eos % (Auto) 0.1 % Baso % (Auto) 0.6 % Immature Gran # (Auto) 0.12 H (0.00-0.02) K/uL Neut # (Auto) 4.02 (1.4-6.5) K/uL Lymph # (Auto) 3.08 (1.2-3.4) K/uL [place] # (Auto) 0.75 H (0.11-0.59) K/uL Eos # (Auto) 0.01 (0-0.5) K/uL Baso # (Auto) 0.05 (0-0.2) K/uL PT (9.0-12.0) Seconds INR (0.9-1.1) Sodium 140 (136-145) mmol/L Potassium 3.1 L (3.5-5.1) mmol/L Chloride 107 (98-107) mmol/L Carbon Dioxide 24 (21-32) mmol/L Anion Gap 10.0 (3-11) BUN 2 L (7-18) mg/dl Creatinine 0.30 L (0.6-1.2) mg/dl Est Cr Clr Drug Dosing 205.2 ml/min Est GFR ( Amer) > 150.0 Est GFR (Non-Af Amer) > 150.0 BUN/Creatinine Ratio (10-20) Glucose (70-99) mg/dl Fasting Glucose 77 (70-99) mg/dl Calcium 8.1 L (8.5-10.1) mg/dl Total Bilirubin 1.0 (0.2-1) mg/dl Direct Bilirubin 0.7 H (0-0.2) mg/dl AST 208 H (15-37) U/L ALT 298 H (12-78) U/L Alkaline Phosphatase 116 (45-117) U/L Lactate Dehydrogenase 217 (84-246) U/L Total Protein 5.5 L (6.4-8.2) gm/dl Albumin 2.0 L (3.4-5.0) gm/dl Globulin 3.5 (2.5-4.0) gm/dl Albumin/Globulin Ratio 0.6 L (0.9-2) 01/06/19 01/06/19 Range/Units 13:35 13:35 WBC (4.8-10.8) K/uL RBC (4.2-5.4) M/uL Hgb (12.0-16.0) g/dL Hct (37-47) % MCV (80-100) fL MCH (25-34) pg MCHC (32-36) g/dL RDW Std Deviation (36.4-46.3) fL RDW Coeff of Brenda (11.5-14.5) % Plt Count (130-400) K/uL MPV (7.4-10.4) fL Immature Gran % (Auto) % Neut % (Auto) % Lymph % (Auto) % [place] % (Auto) % Eos % (Auto) % Baso % (Auto) % Immature Gran # (Auto) (0.00-0.02) K/uL Neut # (Auto) (1.4-6.5) K/uL Lymph # (Auto) (1.2-3.4) K/uL [place] # (Auto) (0.11-0.59) K/uL Eos # (Auto) (0-0.5) K/uL Baso # (Auto) (0-0.2) K/uL PT (9.0-12.0) Seconds INR (0.9-1.1) Sodium 140 (136-145) mmol/L Potassium 3.6 (3.5-5.1) mmol/L Chloride 106 (98-107) mmol/L Carbon Dioxide 25 (21-32) mmol/L Anion Gap 8.0 (3-11) BUN 2 L (7-18) mg/dl Creatinine 0.32 L (0.6-1.2) mg/dl Est Cr Clr Drug Dosing 192.4 ml/min Est GFR ( Amer) > 150.0 Est GFR (Non-Af Amer) > 150.0 BUN/Creatinine Ratio 7.2 L (10-20) Glucose 72 (70-99) mg/dl Fasting Glucose (70-99) mg/dl Calcium 8.3 L (8.5-10.1) mg/dl Total Bilirubin 1.2 H (0.2-1) mg/dl Direct Bilirubin (0-0.2) mg/dl AST 266 H (15-37) U/L ALT 347 H (12-78) U/L Alkaline Phosphatase 122 H (45-117) U/L Lactate Dehydrogenase 236 (84-246) U/L Total Protein 5.7 L (6.4-8.2) gm/dl Albumin 2.1 L (3.4-5.0) gm/dl Globulin 3.6 (2.5-4.0) gm/dl Albumin/Globulin Ratio 0.6 L (0.9-2)
[2019-01-07 13:53] LABS: Anti Nuclear Antibody Screen NEGATIVE (NEGATIVE)
[2019-01-07] MEDS ORDERED: POTASSIUM CHLORIDE 10 MEQ TABCR PO ONE ×2 (14:00→21:00)
--- NOTE | 2019-01-07 18:28 | Infectious Disease Progress Nt ---
Date of Service January 07, 2019 Assessment & Plan (1) Candidiasis of mouth and esophagus: 28-year-old female with cerebral palsy now 32 weeks and presents with acute oral pain, white oral exudate, and fever consistent with diagnosis of acute oral candidiasis. However must rule out possibility of acute herpetic infection, oral viral infection especially EBV and CMV. Given difficulty with antifungals in , have started patient on clotrimazole troches. Additional serologies and blood work ordered. Will follow. Subjective Patient seen in follow-up for oral candidiasis, mouth pain. Still with severe oral pain. Remains afebrile. No other new complaints. Review of Systems Review of Systems: All systems reviewed & are unremarkable except as noted in HPI & below Physical Exam Constitutional: WD/WN, vitals as above comfortable; no acute distress Eyes: PERRL, conjunctivae normal, anicteric sclerae ENMT: Ears: no external ear abnormality Nose: no external nose abnormality Mouth: + oropharynx abnormality (Oral inflammation and tongue coating) Neck: trachea midline, no thyromegaly neck nontender Respiratory: normal respiratory effort, lungs clear to auscultation normal percussion; does not use accessory muscles Cardiovascular: Rate/Rhythm: regular rate and regular rhythm Heart Sounds: normal S1 and normal S2; no gallop, no murmur and no cardiac rub Vessels: normal peripheral pulses; no JVD Gastrointestinal (Abdomen): normal bowel sounds, soft, nontender, no hepato splenomegaly Musculoskeletal: no cyanosis or clubbing, extremities motor strength 5/5 Spine: thoracic spine normal to inspection and lumbar spine normal to inspection; no cervical spinal tenderness Skin: no rashes, warm and dry normal turgor; no lesions Neurologic: patellar DTR's 2+ bilat, sensation intact no focal motor deficits Psychiatric: A+Ox3, euthymic affect Orientation: cooperative Lymphatic: no cervical or axillary lymphadenopathy no inguinal lymphadenopathy Results & Data Vital Signs (Past 12 Hours) Vital Signs Temp Pulse Pulse Resp BP Pulse Ox 01/07/19 15:00 36.7 C 86 16 110/67 95 01/07/19 11:55 36.3 C L 89 14 100/63 96 01/07/19 08:07 36.4 C L 86 86 14 96 Laboratory Results Short CBC 01/06/19 01/07/19 Range/Units 20:10 05:56 WBC 8.03 8.78 (4.8-10.8) K/uL Hgb 9.2 L 9.0 L (12.0-16.0) g/dL Hct 28.5 L 27.0 L (37-47) % Plt Count 241 239 (130-400) K/uL BMP 01/06/19 01/07/19 20:10 05:56 Sodium 140 140 Potassium 3.1 L 3.0 L Chloride 107 107 Carbon Dioxide 24 24 BUN 2 L 1 L Creatinine 0.30 L 0.25 L Glucose 55 L Calcium 8.1 L 7.7 L Liver Function 01/06/19 01/07/19 Range/Units 20:10 05:56 Total Bilirubin 1.0 0.9 (0.2-1) mg/dl Direct Bilirubin 0.7 H 0.7 H (0-0.2) mg/dl AST 208 H 151 H (15-37) U/L ALT 298 H 251 H (12-78) U/L Alkaline Phosphatase 116 117 (45-117) U/L Albumin 2.0 L 1.9 L (3.4-5.0) gm/dl Diagnostic Findings Microbiology 01/05/19 15:55 Face Gram Stain - Final 01/05/19 15:55 Face Aerobic and Anaerobic Culture - Preliminary Alpha strep. not pneumoniae Probable sara gram neg bacilli 01/05/19 15:45 Throat Group A Streptococcus Rapid Screen - Final Specimen negative for Group A Beta Strep by rapid method. Culture report to follow. 01/05/19 15:45 Throat Group A Beta-Hemolytic Strep Cult - Preliminary No beta strep isolated to date. 01/05/19 16:07 Blood Blood Culture - Preliminary No growth to date. 01/05/19 16:01 Blood Blood Culture - Preliminary No growth to date.
[2019-01-07 18:42] LABS: Basophils # (auto) 0.03 K/uL (0-0.2); Basophils % (auto) 0.3 %; Eosinophils # (auto) 0.03 K/uL (0-0.5); Eosinophils % (auto) 0.3 %; Hematocrit (blood only) 29.1 % (37-47); Hemoglobin 9.9 g/dL (12.0-16.0); Immature Granulocytes % (auto) 2.2 %; Lymphocytes # (auto) 3.32 K/uL (1.2-3.4); Lymphocytes % (auto) 35.8 %; Mean Corpuscular Volume 82.9 fL (80-100); Mean Platelet Volume 9.7 fL (7.4-10.4); Monocytes # (auto) 0.63 K/uL (0.11-0.59); Monocytes % (auto) 6.8 %; Neutrophils # (auto) 5.07 K/uL (1.4-6.5); Neutrophils % (auto) 54.6 %; Platelet Count 308 K/uL (130-400); RDW Coefficient of Variation 13.7 % (11.5-14.5); RDW Standard Deviation 41.6 fL (36.4-46.3); Red Blood Count 3.51 M/uL (4.2-5.4); White Blood Count 9.28 K/uL (4.8-10.8)
[2019-01-07] MEDS: OXYCODONE HCL IR 5 MG TAB (IMMEDIATE RELEASE) PO PRN (19:00)
[2019-01-07 19:02] LABS: Alanine Aminotransferase 248 U/L (12-78); Albumin Level 2.1 gm/dl (3.4-5.0); Aspartate Aminotransferase 122 U/L (15-37); Bilirubin Direct 0.7 mg/dl (0-0.2); Blood Urea Nitrogen < 1 mg/dl (7-18); Carbon Dioxide 27 mmol/L (21-32); Chloride 107 mmol/L (98-107); Creatinine Clr Calc Pharmacy 116.2 ml/min; Est GFR (African American) 149.8; Est GFR (Non-African American) 129.2; Glucose Fasting 112 mg/dl (70-99); Potassium 3.4 mmol/L (3.5-5.1); Sodium 139 mmol/L (136-145)
[2019-01-07 19:04] LABS: Albumin Globulin Ratio 0.5 (0.9-2); Alkaline Phosphatase 135 U/L (45-117); Bilirubin,Total 0.9 mg/dl (0.2-1); Total Protein 6.1 gm/dl (6.4-8.2)
--- NOTE | 2019-01-07 20:47 | Hospitalist Progress Note ---
Date of Service January 07, 2019 Assessment & Plan (1) Abnormal LFTs (liver function tests): LFTs trending down Liver USD:No cholelithiasis or biliary ductal dilatation. Denies abd pain Normal lipase Serological work up pending Appreciate GI input Continue Hydration monitor LFTs Hypokalemia: Likely due to poor PO intake Replace potassium supplements as able (2) Elevated d-dimer: (3) Third trimester at less than 36 weeks: 32 weeks , Continue to follow OB recommendation Concern regarding abnormal liver function test, abnormal d-dimer, FDP May need to be transferred to higher level of care, for high risk if clinically deteriorates (4) Candidiasis of mouth and esophagus: Continue Clotrimazole ID following (5) Acute dehydration: (6) Seizure disorder: History of cerebral palsy/seizure disorder Continue Keppra (7) Depression: Stable CODE STATUS: Full code Disposition: As per Primary Service Subjective Patient is seen and examined at bedside Complains of oral pain due to ulcers Denies chest pain, SOB, dizziness, abd pain No other complaints Family at bedside Review of Systems Review of Systems: All systems reviewed & are unremarkable except as noted in HPI & below Physical Exam Physical Exam: Physical Exam: Vitals signs as noted above General Appearance:Moderately built and nourished, no apparent distress Head: normocephalic, Atraumatic, +Oral candidiasis Eyes: normal inspection, EOMI Neck: supple, Trachea midline Respiratory/Chest: Normal breath sounds, CTA Cardiovascular: S1, S2, No murmur Abdomen/GI:Soft, Non tender, Bowel sounds present : deffered Extremities/Musculoskelatal:normal inspection, no edema Neurologic/Psych:AAOX3, grossly no focal neurological deficits Skin: normal color, warm Results & Data Vital Signs (Past 12 Hours) Vital Signs Temp Pulse Resp BP Pulse Ox 01/07/19 15:00 36.7 C 86 16 110/67 95 01/07/19 11:55 36.3 C L 89 14 100/63 96 Laboratory Results Short CBC 01/07/19 01/07/19 Range/Units 05:56 18:27 WBC 8.78 9.28 (4.8-10.8) K/uL Hgb 9.0 L 9.9 L (12.0-16.0) g/dL Hct 27.0 L 29.1 L (37-47) % Plt Count 239 308 (130-400) K/uL BMP 01/06/19 01/07/19 01/07/19 20:10 05:56 18:27 Sodium 140 140 139 Potassium 3.1 L 3.0 L 3.4 L Chloride 107 107 107 Carbon Dioxide 24 24 27 BUN 2 L 1 L < 1 L Creatinine 0.30 L 0.25 L 0.53 L Glucose 55 L Calcium 8.1 L 7.7 L 8.0 L Liver Function 01/06/19 01/07/19 01/07/19 Range/Units 20:10 05:56 18:27 Total Bilirubin 1.0 0.9 0.9 (0.2-1) mg/dl Direct Bilirubin 0.7 H 0.7 H 0.7 H (0-0.2) mg/dl AST 208 H 151 H 122 H (15-37) U/L ALT 298 H 251 H 248 H (12-78) U/L Alkaline Phosphatase 116 117 135 H (45-117) U/L Albumin 2.0 L 1.9 L 2.1 L (3.4-5.0) gm/dl
[2019-01-07] MEDS: FOLIC ACID 1 MG TAB PO SCH (21:08)
[2019-01-07] MEDS: MAGNESIUM OXIDE 400 MG TAB PO SCH (21:11)
[2019-01-07] MEDS: PRENATAL VITAMIN 1 TAB PO SCH (21:15)
[2019-01-08] MEDS: OXYCODONE HCL IR 5 MG TAB (IMMEDIATE RELEASE) PO PRN ×4 (01:04→23:05)
[2019-01-08] MEDS: LACTATED RINGER'S 1,000 ML IV SCH ×3 (03:23→19:36)
[2019-01-08] MEDS: DEXAMETHASONE CONC 3.75 MG, NYSTATIN 30 ML, DiphenhydrAMINE Syrup 300 MG, ORA-SWEET SYR... PO SCH ×6 (03:40→23:40)
[2019-01-08] MEDS: CLOTRIMAZOLE 10 MG TROCHE BUCCAL SCH ×5 (06:30→23:05)
[2019-01-08 06:45] LABS: Basophils # (auto) 0.03 K/uL (0-0.2); Basophils % (auto) 0.4 %; Eosinophils # (auto) 0.03 K/uL (0-0.5); Eosinophils % (auto) 0.4 %; Hematocrit (blood only) 25.9 % (37-47); Hemoglobin 8.6 g/dL (12.0-16.0); Immature Granulocytes % (auto) 3.8 %; Lymphocytes # (auto) 2.57 K/uL (1.2-3.4); Lymphocytes % (auto) 32.4 %; Mean Corpuscular Hgb Conc 33.2 g/dL (32-36); Mean Corpuscular Volume 83.3 fL (80-100); Mean Platelet Volume 9.4 fL (7.4-10.4); Monocytes # (auto) 0.96 K/uL (0.11-0.59); Monocytes % (auto) 12.1 %; Neutrophils # (auto) 4.04 K/uL (1.4-6.5); Neutrophils % (auto) 50.9 %; Platelet Count 296 K/uL (130-400); RDW Coefficient of Variation 13.9 % (11.5-14.5); RDW Standard Deviation 42.4 fL (36.4-46.3); Red Blood Count 3.11 M/uL (4.2-5.4); White Blood Count 7.93 K/uL (4.8-10.8)
[2019-01-08 06:51] LABS: Prothrombin Time 10.4 Seconds (9.0-12.0)
[2019-01-08 07:13] LABS: Alanine Aminotransferase 183 U/L (12-78); Albumin Level 1.8 gm/dl (3.4-5.0); Aspartate Aminotransferase 77 U/L (15-37); Bilirubin Direct 0.5 mg/dl (0-0.2); Blood Urea Nitrogen < 1 mg/dl (7-18); Calcium 7.9 mg/dl (8.5-10.1); Carbon Dioxide 27 mmol/L (21-32); Chloride 109 mmol/L (98-107); Est GFR (African American) > 150.0; Est GFR (Non-African American) > 150.0; Glucose 77 mg/dl (70-99); Glucose Fasting 77 mg/dl (70-99); Potassium 4.2 mmol/L (3.5-5.1); Sodium 140 mmol/L (136-145)
[2019-01-08 07:16] LABS: Albumin Globulin Ratio 0.5 (0.9-2); Alkaline Phosphatase 110 U/L (45-117); Bilirubin,Total 0.8 mg/dl (0.2-1); Globulin 3.4 gm/dl (2.5-4.0); Total Protein 5.2 gm/dl (6.4-8.2)
[2019-01-08 08:03] LABS: Hepatitis B Surface Antigen Neg (Neg)
[2019-01-08 08:31] LABS: Hepatitis C IgG 13Yrs+Old_Rflx Neg (Neg)
[2019-01-08] MEDS: levETIRAcetam 500 MG TAB PO SCH ×2 (09:07→21:16)
[2019-01-08] MEDS: FLUTICASONE HFA 110MCG INHALER INH SCH ×2 (09:08→21:20)
[2019-01-08] MEDS: NYSTATIN SUSP 500,000 U/5 ML UDC PO SCH ×4 (09:08→21:19)
--- NOTE | 2019-01-08 09:55 | Gastroenterology Progress Note ---
Date of Service January 08, 2019 Assessment & Plan (1) Abnormal LFTs (liver function tests): 28 year old female, 32 weeks , admitted w/ oral yeast and inability to tolerate PO due to oral discomfort - GI was asked to evaluate the pt for abnormal LFTs. Denies RUQ pain, nausea, vomiting, black/bloody stools/emesis, pruritus, mental fogging. No examination she is awake, alert and oriented w/ appropriate recall. Normal TB and normal coagulation studies. DDX discussed: shock liver secondary to dehydration and inability to tolerate PO, infectious etiology (Hep A, B, C, E, CMV, EBV), acute fatty liver of (no evidence of fatty liver on ABD US) HELLP (medicine and ob-batch mixer following) cholestasis of (denies pruritus, Tbili normal, no prior episodes) - ABD US negative - Would recommend daily LFTs, coagulation studies - If coagulation studies remain normal and LFTs continue to trend down likely viral/shock induced inflammation - If coagulation studies become elevated or LFTs rise GI would recommend transfer to a tertiary care center - Would recommend viral serology - Acute hepatitis panel and Hepatitis E - CMV IGM, IGG - EBV IGM, IGG - Would recommend to check bile acids - Pending - Maintenance fluids for hydration - Continued mental status evaluation Thank you for allowing us to participate in the care of this patient. Please call with any acute changes, questions or concerns. Please see addendum below with additional recommendation from my supervising physician. Supervising Physician Co-Signing Physician Notes I have seen and examined the patient and discussed the management with SLOAN Rogers. Patient alert and oriented to person/place time. CV- rrr no mrg. Pulm- ctab, abd - abdomen Labs inclding viral serologies and bile salts pending. LFT's downtrending Prior abd monroe reviewed Await viral serologies and bile salt. Given downtrending lft's and normal mental status, would opt to ensure continued downtrending of lft's. Subjective Pt was seen and evaluated, chart reviewed. Oral pain continues to improve. Starting tolerating PO. No abd pain. No nausea, vomiting. No pruritis. No black/bloody stools. No change in LOC, confusion. No fever, chills, CP, SOB. TB: 1.1 --> 1 --> 1.2 --> 1.2 --> 1 --> 0.9 --> 0.8 AST: 579 --> 442 --> 312 --> 266 --> 208 --> 151 --> 77 ALT: 534 --> 440 --> 372 --> 347 --> 298 --> 251 --> 183 ALKP: 146 --> 130 --> 124 --> 122 --> 116 --> 117 --> 110 ABD US: Normal echogenicity and echotexture. The liver measures 14.0 cm in maximal sagittal dimension. No sonographic evidence of hepatic mass. Main portal vein patent with normal directional flow. Biliary: No intrahepatic biliary ductal dilatation. Common bile duct measures up to 2 mm in diameter. Gallbladder: No evidence of gallstones, gallbladder wall thickening, gallbladder distention, or pericholecystic fluid or inflammatory change. Right kidney: Normal in appearance without evidence of hydronephrosis. Ascites: None. Review of Systems Constitutional: no fever, no body aches, no weakness and no insomnia Respiratory: no cough, no dyspnea, no pain on inspiration and no wheezing Cardiovascular: no chest pain, no radiating jaw, neck or arm pain, no dyspnea on exertion and no palpitations Gastrointestinal: no abdominal pain, no belching, no early satiety, no nausea, no vomiting, no hematemesis, no pain with swallowing, no dysphagia, no excessive flatulence, no change in bowel habits, no change in stools, no diarrhea/loose stools, no blood in stools and no melena Physical Exam Constitutional: WD/WN, vitals as above Respiratory: normal respiratory effort, lungs clear to auscultation Cardiovascular: RRR, no murmur, no edema Gastrointestinal (Abdomen): Inspection/Auscultation: abdomen normal to inspection Percussion/Palpation: abdomen soft; abdomen nontender, no guarding and abdomen not rigid Skin: no rashes, warm and dry Results & Data Vital Signs (Past 12 Hours) Vital Signs Temp Pulse Resp BP Pulse Ox 01/08/19 07:55 36.4 C L 85 18 118/71 01/08/19 03:20 36.8 C 89 18 107/65 94 01/07/19 23:40 36.5 C 90 18 108/69 97
--- NOTE | 2019-01-08 10:06 | Hospitalist Progress Note ---
Date of Service January 08, 2019 Assessment & Plan (1) Abnormal LFTs (liver function tests): LFTs trending down ( AST peak 442 now 77, ALT peak 534 now 183, T bili 0.8, direct bili 0.5) Liver USD:No cholelithiasis or biliary ductal dilatation. Denies abd pain Normal lipase Serological work up pending Appreciate GI input tolerating current diet monitor LFTs Medicine to sign off given patient status improving. (2) Hypokalemia: Likely due to poor PO intake received total 80meq KCL 01/07 K 4.2 today (3) Elevated d-dimer: (4) Third trimester at less than 36 weeks: 32 weeks Continue to follow OB recommendation Concern regarding abnormal liver function test, abnormal d-dimer, FDP May need to be transferred to higher level of care, for high risk if clinically deteriorates, defer to GI recommedations (5) Candidiasis of mouth and esophagus: Continue Clotrimazole await serologies ID following, appreciate their input (6) Acute dehydration: on IVF secondary to poor po intake tolerating clear liquids will upgrade to full liquid if okay with GI consider decreasing IVF or discontinuing if tolerating oral diet (7) Anemia: H/H decreased to 8.6 and 25.9 On admission H/H 10.7 and 32.4 likely dilutional given IVF follow H/H no s/sx of bleeding (8) Seizure disorder: History of cerebral palsy/seizure disorder no seizure noted Continue Karlos (9) Depression: mood Stable CODE STATUS: Full code Disposition: As per Primary Service Patient was seen and examined in collaboration with Dr. Tomlinson, please see addendum Medicine to sign off given patient status improving. Thank you for this consultation. If you have any concerns or need to recall us you can reach a [facility] via pager @ [phone]. Supervising Physician Co-Signing Physician Notes Patient is seen and examined at bedside. Less oral pain today, tolerating diet. LFTs continues to trend down. Continue Clotrimazole. Follow up Serolgical studies which are pending. Advance diet as able. Monitor electrolytes. Right ear pain likely referred pain. On Exam, no distress, lungs CTA, S1, S2, No murmur, Abd soft, grossly no neurological deficits. Please call with any concerns. I personally reviewed the record. Patient is interviewed and examined at bedside. Patient's care is coordinated with Shaunna Cai PA-C. Please refer to the documentation above for details of patient's presentation and for discussion of other issues. Subjective Patient seen and examined in room 431. Follow-up for oral candidiasis, mouth pain. Feels mouth pain improving, concerned for what is the cause? "I've had thrush before and it has never felt like this." Otherwise offers no acute complaints. Denies f/c/s, chest pain, sob, dizziness, n/v/d, abdominal pain, change in bowel or urinary habits. Currently tolerating diet. Review of Systems Review of Systems: As noted per HPI, 10 systems reviewed and negative unless noted above. Physical Exam Physical Exam: Gen: WD/WN, F with cerebral palsy, MR, sitting up in bed, NAD, A&O x3 HEENT: Normocephalic, atraumatic, conjunctivae moist, sclerae anicteric, mucous membranes moist, + oral ulcerations on tongue, no white patches noted today . Lung: Clear to Auscultation bilaterally, no wheezes/rales/rhonchi Heart: Regular rate, regular rhythm, no murmurs, rubs, or gallops Abdomen: Soft, NT, +BS x 4 Extremities: No edema, L club foot Skin: Warm, no rash, negative turgor. Results & Data Vital Signs (Past 12 Hours) Vital Signs Temp Pulse Resp BP Pulse Ox 01/08/19 07:55 36.4 C L 85 18 118/71 01/08/19 03:20 36.8 C 89 18 107/65 94 01/07/19 23:40 36.5 C 90 18 108/69 97 Laboratory Results Short CBC 01/05/19 01/05/19 01/05/19 Range/Units 16:01 16:01 21:48 WBC (4.8-10.8) K/uL Hgb (12.0-16.0) g/dL Hct (37-47) % Plt Count (130-400) K/uL BUN 2 L (7-18) mg/dl Creatinine 0.44 L (0.6-1.2) mg/dl AST 576 H Cancelled 442 H (15-37) U/L ALT 534 H Cancelled 440 H (12-78) U/L 01/06/19 01/06/19 01/06/19 Range/Units 09:19 13:35 20:10 WBC (4.8-10.8) K/uL Hgb (12.0-16.0) g/dL Hct (37-47) % Plt Count (130-400) K/uL BUN 3 L 2 L 2 L (7-18) mg/dl Creatinine 0.37 L 0.32 L 0.30 L (0.6-1.2) mg/dl AST 312 H 266 H 208 H (15-37) U/L ALT 372 H 347 H 298 H (12-78) U/L 01/07/19 01/07/19 01/07/19 Range/Units 05:56 18:27 18:27 WBC 9.28 (4.8-10.8) K/uL Hgb 9.9 L (12.0-16.0) g/dL Hct 29.1 L (37-47) % Plt Count 308 (130-400) K/uL BUN 1 L < 1 L (7-18) mg/dl Creatinine 0.25 L 0.53 L (0.6-1.2) mg/dl AST 151 H 122 H (15-37) U/L ALT 251 H 248 H (12-78) U/L 01/08/19 01/08/19 Range/Units 05:49 05:49 WBC 7.93 (4.8-10.8) K/uL Hgb 8.6 L (12.0-16.0) g/dL Hct 25.9 L (37-47) % Plt Count 296 (130-400) K/uL BUN < 1 L (7-18) mg/dl Creatinine 0.27 L (0.6-1.2) mg/dl AST 77 H (15-37) U/L ALT 183 H (12-78) U/L BMP 01/07/19 01/08/19 18:27 05:49 Sodium 139 140 Potassium 3.4 L 4.2 D Chloride 107 109 H Carbon Dioxide 27 27 BUN < 1 L < 1 L Creatinine 0.53 L 0.27 L Glucose 77 Calcium 8.0 L 7.9 L Liver Function 01/07/19 01/08/19 Range/Units 18:27 05:49 Total Bilirubin 0.9 0.8 (0.2-1) mg/dl Direct Bilirubin 0.7 H 0.5 H (0-0.2) mg/dl AST 122 H 77 H (15-37) U/L ALT 248 H 183 H (12-78) U/L Alkaline Phosphatase 135 H 110 (45-117) U/L Albumin 2.1 L 1.8 L (3.4-5.0) gm/dl Medications Administered Clotrimazole (Mycelex) 10 mg BUCCAL [id number] LUCIE Stop: 01/16/19 10:59 Last Admin: 01/08/19 06:30 Dose: 10 mg Documented by: [id number] Admin: 01/07/19 23:45 Dose: 10 mg Documented by: [id number] Admin: 01/07/19 19:59 Dose: 10 mg Documented by: [id number] Admin: 01/07/19 14:56 Dose: 10 mg Documented by: [id number] Cosigned by: [id number] Admin: 01/07/19 11:04 Dose: 10 mg Documented by: [id number] Admin: 01/07/19 07:27 Dose: 10 mg Documented by: [id number] Admin: 01/06/19 22:24 Dose: 10 mg Documented by: [id number] Admin: 01/06/19 19:50 Dose: 10 mg Documented by: [id number] Admin: 01/06/19 15:43 Dose: 10 mg Documented by: [id number] Admin: 01/06/19 11:47 Dose: 10 mg Documented by: [id number] Dexamethasone 3.75 mg/Nystatin 30 ml/Diphenhydramine HCl 300 mg/Sucrose 30 ml/Microcrystalline Cellulose 30 ml/ Lidocaine HCl 30 ml/BARCODE IDENTIFIER 1 ea 0 mg PO Q4 LUCIE Stop: 02/05/19 21:29 Last Admin: 01/08/19 07:55 Dose: 10 ml Documented by: [id number] Admin: 01/08/19 03:40 Dose: 10 ml Documented by: [id number] Admin: 01/07/19 23:44 Dose: 10 ml Documented by: [id number] Admin: 01/07/19 19:58 Dose: 10 ml Documented by: [id number] Admin: 01/07/19 16:20 Dose: 10 ml Documented by: [id number] Cosigned by: [id number] Admin: 01/07/19 12:19 Dose: 10 ml Documented by: [id number] Admin: 01/07/19 09:27 Dose: 10 ml Documented by: [id number] Admin: 01/07/19 04:16 Dose: 10 ml Documented by: [id number] Admin: 01/07/19 00:18 Dose: 10 ml Documented by: [id number] Admin: 01/06/19 22:25 Dose: 10 ml Documented by: [id number] Fluticasone Propionate (Flovent Hfa 110h) 1 puffs INH Q12 LUCIE Stop: 02/05/19 00:15 Last Admin: 01/08/19 09:08 Dose: Not Given Documented by: [id number] Admin: 01/07/19 21:16 Dose: Not Given Documented by: [id number] Admin: 01/07/19 09:29 Dose: Not Given Documented by: [id number] Admin: 01/06/19 21:14 Dose: Not Given Documented by: [id number] Admin: 01/06/19 08:33 Dose: Not Given Documented by: [id number] Admin: 01/06/19 07:19 Dose: Not Given Documented by: [id number] Folic Acid (Folvite) 2 mg PO QPM LUCIE Stop: 02/05/19 00:59 Last Admin: 01/07/19 21:08 Dose: 2 mg Documented by: [id number] Admin: 01/06/19 21:14 Dose: Not Given Documented by: [id number] Admin: 01/06/19 01:48 Dose: 2 mg Documented by: [id number] Lactated Ringer's (Lr) 1,000 mls @ 125 mls/hr IV .Q8H LUCIE Stop: 02/04/19 21:59 Last Infusion: 01/08/19 06:47 Dose: 125 mls/hr Documented by: [id number] Admin: 01/08/19 03:23 Dose: 125 mls/hr Documented by: [id number] Infusion: 01/08/19 03:23 Dose: 125 mls/hr Documented by: [id number] Infusion: 01/07/19 22:49 Dose: 125 mls/hr Documented by: [id number] Admin: 01/07/19 19:35 Dose: 125 mls/hr Documented by: [id number] Infusion: 01/07/19 19:22 Dose: 125 mls/hr Documented by: [id number] Admin: 01/07/19 11:22 Dose: 125 mls/hr Documented by: [id number] Infusion: 01/07/19 10:23 Dose: 125 mls/hr Documented by: [id number] Infusion: 01/07/19 08:53 Dose: 125 mls/hr Documented by: [id number] Infusion: 01/07/19 06:31 Dose: 125 mls/hr Documented by: [id number] Admin: 01/07/19 02:22 Dose: 125 mls/hr Documented by: [id number] Infusion: 01/07/19 02:22 Dose: 125 mls/hr Documented by: [id number] Admin: 01/06/19 19:50 Dose: 125 mls/hr Documented by: [id number] Infusion: 01/06/19 16:41 Dose: 125 mls/hr Documented by: [id number] Admin: 01/06/19 08:41 Dose: 125 mls/hr Documented by: [id number] Infusion: 01/06/19 07:00 Dose: 125 mls/hr Documented by: [id number] Admin: 01/05/19 23:00 Dose: 125 mls/hr Documented by: [id number] Levetiracetam (Keppra) 1,500 mg PO BID LUCIE Stop: 02/05/19 00:59 Last Admin: 01/08/19 09:07 Dose: 1,500 mg Documented by: [id number] Admin: 01/07/19 21:14 Dose: 1,500 mg Documented by: [id number] Admin: 01/07/19 09:24 Dose: 1,500 mg Documented by: [id number] Admin: 01/06/19 22:22 Dose: 1,500 mg Documented by: [id number] Admin: 01/06/19 08:30 Dose: 1,500 mg Documented by: [id number] Admin: 01/06/19 01:50 Dose: 1,500 mg Documented by: [id number] Magnesium Oxide (Mag-Ox) 400 mg PO QPM LUCIE Stop: 02/05/19 00:59 Last Admin: 01/07/19 21:11 Dose: 400 mg Documented by: [id number] Admin: 01/06/19 22:24 Dose: 400 mg Documented by: [id number] Admin: 01/06/19 01:47 Dose: 400 mg Documented by: [id number] Nystatin (Mycostatin) 5 ml PO QID LUCIE Stop: 01/16/19 08:59 Last Admin: 01/08/19 09:08 Dose: 5 ml Documented by: [id number] Admin: 01/07/19 21:14 Dose: 5 ml Documented by: [id number] Admin: 01/07/19 17:12 Dose: 5 ml Documented by: [id number] Cosigned by: [id number] Admin: 01/07/19 13:18 Dose: 5 ml Documented by: [id number] Cosigned by: [id number] Admin: 01/07/19 08:58 Dose: 5 ml Documented by: [id number] Admin: 01/06/19 21:14 Dose: 5 ml Documented by: [id number] Admin: 01/06/19 17:34 Dose: 5 ml Documented by: [id number] Admin: 01/06/19 12:59 Dose: 5 ml Documented by: [id number] Admin: 01/06/19 08:29 Dose: 5 ml Documented by: [id number] Oxycodone HCl (Roxicodone Immediate Rel) 5 mg PO Q6H PRN PRN Reason: Pain Stop: 01/21/19 18:13 Last Admin: 01/08/19 08:10 Dose: 5 mg Documented by: [id number] Admin: 01/08/19 01:04 Dose: 5 mg Documented by: [id number] Admin: 01/07/19 19:00 Dose: 5 mg Documented by: [id number] Prenat Multivit/Base Remover/Iron/Folic Ac ( Vitamin) 1 tab PO QPM LUCIE Stop: 02/05/19 00:59 Last Admin: 01/07/19 21:15 Dose: 1 tab Documented by: [id number] Admin: 01/06/19 21:15 Dose: Not Given Documented by: [id number] Admin: 01/06/19 01:47 Dose: 1 tab Documented by: [id number] Discontinued Medications Acetaminophen (Tylenol) 650 mg PO Q4H PRN PRN Reason: Notification Stop: 02/05/19 02:17 Last Admin: 01/06/19 06:47 Dose: 650 mg Documented by: [id number] Dexamethasone 3.75 mg/Nystatin 30 ml/Diphenhydramine HCl 300 mg/Sucrose 30 ml/Microcrystalline Cellulose 30 ml/ Lidocaine HCl 30 ml/BARCODE IDENTIFIER 1 ea 0 mg PO Q6 LUCIE Stop: 02/05/19 09:59 Last Admin: 01/06/19 17:35 Dose: 10 ml Documented by: [id number] Admin: 01/06/19 11:32 Dose: 10 ml Documented by: [id number] Admin: 01/06/19 10:26 Dose: 10 ml Documented by: [id number] Fluoxetine HCl (Prozac) 30 mg PO HS LUCIE Stop: 02/05/19 00:59 Last Admin: 01/06/19 01:49 Dose: 30 mg Documented by: [id number] Sodium Chloride (Nss 1000ml) 1,000 mls @ 999 mls/hr IV .Q1H1M ONE Stop: 01/05/19 16:41 Last Infusion: 01/05/19 17:34 Dose: 0 mls/hr Documented by: [id number] Admin: 01/05/19 16:31 Dose: 999 mls/hr Documented by: [id number] Fluconazole (Diflucan) 200 mg in 100 mls @ 100 mls/hr IV UD LUCIE Stop: 01/15/19 16:14 Last Infusion: 01/05/19 18:23 Dose: 0 mls/hr Documented by: [id number] Admin: 01/05/19 16:49 Dose: 100 mls/hr Documented by: [id number] Morphine Sulfate (Morphine Sulfate) 4 mg IV NOW STA Stop: 01/05/19 16:03 Last Admin: 01/05/19 16:32 Dose: 4 mg Documented by: [id number] Morphine Sulfate (Morphine Sulfate) 4 mg IV NOW STA Stop: 01/05/19 21:19 Last Admin: 01/05/19 21:28 Dose: 4 mg Documented by: [id number] Ondansetron HCl (Zofran) 4 mg IV NOW STA Stop: 01/05/19 16:03 Last Admin: 01/05/19 16:31 Dose: 4 mg Documented by: [id number] Potassium Chloride (Klor-Con M10) 40 meq PO NOW ONE Stop: 01/07/19 14:01 Last Admin: 01/07/19 14:51 Dose: 40 meq Documented by: [id number] Cosigned by: [id number] Potassium Chloride (Klor-Con M10) 40 meq PO ONE ONE Stop: 01/07/19 21:01 Last Admin: 01/07/19 21:05 Dose: 40 meq Documented by: [id number]
--- NOTE | 2019-01-08 14:04 | Infectious Disease Progress Nt ---
Date of Service January 08, 2019 Assessment & Plan (1) Candidiasis of mouth and esophagus: 28-year-old female with cerebral palsy now 32 weeks and presents with acute oral pain, white oral exudate, and fever consistent with diagnosis of acute oral candidiasis. However must rule out possibility of acute herpetic infection, oral viral infection especially EBV and CMV. Patient to continue on clotrimazole troches. Await viral serologies. Subjective Patient seen in follow-up for oral candidiasis. Mouth pain slowly improving. Remains afebrile. No other new specific complaints. Viral serologies are pending. Review of Systems Review of Systems: All systems reviewed & are unremarkable except as noted in HPI & below Physical Exam Constitutional: WD/WN, vitals as above comfortable; no acute distress Eyes: PERRL, conjunctivae normal, anicteric sclerae ENMT: Ears: no external ear abnormality Nose: no external nose abnormality Mouth: + oropharynx abnormality (Oral inflammation and tongue coating) Neck: trachea midline, no thyromegaly neck nontender Respiratory: normal respiratory effort, lungs clear to auscultation normal percussion; does not use accessory muscles Cardiovascular: Rate/Rhythm: regular rate and regular rhythm Heart Sounds: normal S1 and normal S2; no gallop, no murmur and no cardiac rub Vessels: normal peripheral pulses; no JVD Gastrointestinal (Abdomen): normal bowel sounds, soft, nontender, no hepatosplenomegaly Musculoskeletal: no cyanosis or clubbing, extremities motor strength 5/5 Spine: thoracic spine normal to inspection and lumbar spine normal to inspection; no cervical spinal tenderness Skin: no rashes, warm and dry normal turgor; no lesions Neurologic: patellar DTR's 2+ bilat, sensation intact no focal motor deficits Psychiatric: A+Ox3, euthymic affect Orientation: cooperative Lymphatic: no cervical or axillary lymphadenopathy no inguinal lymphadenopathy Results & Data Vital Signs (Past 12 Hours) Vital Signs Temp Pulse Resp BP Pulse Ox 01/08/19 12:46 36.1 C L 103 H 20 113/72 01/08/19 07:55 36.4 C L 85 18 118/71 01/08/19 03:20 36.8 C 89 18 107/65 94 Laboratory Results Short CBC 01/07/19 01/08/19 Range/Units 18:27 05:49 WBC 9.28 7.93 (4.8-10.8) K/uL Hgb 9.9 L 8.6 L (12.0-16.0) g/dL Hct 29.1 L 25.9 L (37-47) % Plt Count 308 296 (130-400) K/uL BMP 01/07/19 01/08/19 18:27 05:49 Sodium 139 140 Potassium 3.4 L 4.2 D Chloride 107 109 H Carbon Dioxide 27 27 BUN < 1 L < 1 L Creatinine 0.53 L 0.27 L Glucose 77 Calcium 8.0 L 7.9 L Liver Function 01/07/19 01/08/19 Range/Units 18:27 05:49 Total Bilirubin 0.9 0.8 (0.2-1) mg/dl Direct Bilirubin 0.7 H 0.5 H (0-0.2) mg/dl AST 122 H 77 H (15-37) U/L ALT 248 H 183 H (12-78) U/L Alkaline Phosphatase 135 H 110 (45-117) U/L Albumin 2.1 L 1.8 L (3.4-5.0) gm/dl Diagnostic Findings Microbiology 01/05/19 15:55 Face Gram Stain - Final 01/05/19 15:55 Face Aerobic and Anaerobic Culture - Preliminary Alpha strep. not pneumoniae Probable sara gram neg bacilli 01/05/19 15:45 Throat Group A Streptococcus Rapid Screen - Final Specimen negative for Group A Beta Strep by rapid method. Culture report to follow. 01/05/19 15:45 Throat Group A Beta-Hemolytic Strep Cult - Final No Group A Beta Strep isolated. 01/05/19 16:07 Blood Blood Culture - Preliminary No growth to date. 01/05/19 16:01 Blood Blood Culture - Preliminary No growth to date.
--- NOTE | 2019-01-08 14:13 | OB/GYN Consultation ---
Date of Consultation January 08, 2019 doing better today with less pain still has difficulty with pain when she eats tolerting full liquids so far today no solid food yet History of Present Illness Attending Physician: Grey Teixeira MD Allergies Allergy/AdvReac Type Severity Reaction Status Date / Time cefprozil Allergy Mild Swelling Verified 01/06/19 01:26 of Lip/Tongue/Throat Sulfa (Sulfonamide Allergy Mild Rash Verified 01/05/19 23:56 Antibiotics) escitalopram [From Lexapro] Allergy Rash Verified 01/05/19 23:56 Home Medications Home Medications Medication Instructions Recorded Confirmed Type PNV,calcium 25-liya-ssatj acid 1 tab PO QPM 01/05/19 01/05/19 History [ Plus (calcium carb)] albuterol sulfate 2.5 mg INHALATION Q4H PRN 01/05/19 01/05/19 History budesonide [Pulmicort] 2 puff INHALATION BID PRN 01/05/19 01/05/19 History fluoxetine 30 mg PO HS 01/05/19 01/05/19 History fluticasone propionate [Flovent 1 puff INHALATION Q12H 01/05/19 01/05/19 History HFA] folic acid 2 mg PO QPM 01/05/19 01/05/19 History levetiracetam [Keppra] 1,500 mg PO BID 01/05/19 01/05/19 History magnesium oxide 400 mg PO QPM 01/05/19 01/05/19 History nystatin 1 dose MUCOUS MEMBRANE QID 01/05/19 01/05/19 History Patient History Medical History Cerebral palsy Social History Preferred Language: Somali Communication Ability: Impaired Web Design Instructor Required: No Beliefs That Will Affect Care: None Current Living Situation: Family Other Information That Helps Us Care for You: No Feels Safe at Home: Yes Safety Concerns: Feels Safe At This Time Smoking Status: Never smoker Do You Dip or Chew Tobacco: No Second Hand Exposure: No Tobacco Cessation Education Requested by Patient: No Hx Alcohol Use: No Hx Substance Use: No Physical Exam Constitutional: WD/WN, vitals as above comfortable NST today Cat 1 Will continue with meds per ID LFT's are coming down labs and cultures still pending stable from INTERVENTIONAL RADIOLOGY TECHNOLOGIST perspective Results & Data Vital Signs (Past 12 Hours) Vital Signs Temp Pulse Resp BP Pulse Ox 01/08/19 12:46 36.1 C L 103 H 20 113/72 01/08/19 07:55 36.4 C L 85 18 118/71 01/08/19 03:20 36.8 C 89 18 107/65 94
[2019-01-08 16:13] LABS: HSV Type 1 DNA Detected (Not Detected); HSV Type 1&2 DNA Source Swab; HSV Type 2 DNA Not Detected (Not Detected)
[2019-01-08] MEDS: FOLIC ACID 1 MG TAB PO SCH (21:16)
[2019-01-08] MEDS: MAGNESIUM OXIDE 400 MG TAB PO SCH (21:17)
[2019-01-08] MEDS: PRENATAL VITAMIN 1 TAB PO SCH (21:18)
[2019-01-09] MEDS: LACTATED RINGER'S 1,000 ML IV SCH ×2 (03:02→11:45)
[2019-01-09] MEDS: DEXAMETHASONE CONC 3.75 MG, NYSTATIN 30 ML, DiphenhydrAMINE Syrup 300 MG, ORA-SWEET SYR... PO SCH ×4 (03:48→18:18)
[2019-01-09] MEDS: CLOTRIMAZOLE 10 MG TROCHE BUCCAL SCH ×3 (06:26→18:19)
[2019-01-09 06:52] LABS: Hematocrit (blood only) 25.9 % (37-47); Hemoglobin 8.6 g/dL (12.0-16.0); Mean Corpuscular Hgb Conc 33.2 g/dL (32-36); Mean Corpuscular Volume 83.3 fL (80-100); Mean Platelet Volume 9.6 fL (7.4-10.4); Nucleated RBC # (auto) 0.03 K/uL (0-0); Nucleated RBC % (auto) 0.4 %; Platelet Count 308 K/uL (130-400); RDW Coefficient of Variation 13.9 % (11.5-14.5); RDW Standard Deviation 42.3 fL (36.4-46.3); Red Blood Count 3.11 M/uL (4.2-5.4); White Blood Count 8.06 K/uL (4.8-10.8)
[2019-01-09 07:02] LABS: Prothrombin Time 10.5 Seconds (9.0-12.0)
[2019-01-09 07:26] LABS: Blood Urea Nitrogen < 1 mg/dl (7-18); Carbon Dioxide 28 mmol/L (21-32); Chloride 108 mmol/L (98-107); Est GFR (African American) > 150.0; Potassium 3.7 mmol/L (3.5-5.1); Sodium 139 mmol/L (136-145)
[2019-01-09 07:27] LABS: Alanine Aminotransferase 149 U/L (12-78); Albumin Level 1.8 gm/dl (3.4-5.0); Aspartate Aminotransferase 67 U/L (15-37); Bilirubin Direct 0.3 mg/dl (0-0.2); Calcium 7.9 mg/dl (8.5-10.1); Creatinine Clr Calc Pharmacy 198.6 ml/min; Est GFR (Non-African American) > 150.0; Glucose 73 mg/dl (70-99)
[2019-01-09 07:30] LABS: Albumin Globulin Ratio 0.5 (0.9-2); Alkaline Phosphatase 113 U/L (45-117); Bilirubin,Total 0.6 mg/dl (0.2-1); Globulin 3.4 gm/dl (2.5-4.0); Total Protein 5.2 gm/dl (6.4-8.2)
[2019-01-09] MEDS: levETIRAcetam 500 MG TAB PO SCH (09:05)
[2019-01-09] MEDS: NYSTATIN SUSP 500,000 U/5 ML UDC PO SCH ×2 (09:06→13:58)
[2019-01-09] MEDS: FLUTICASONE HFA 110MCG INHALER INH SCH (09:11)
--- NOTE | 2019-01-09 09:45 | Gastroenterology Progress Note ---
Date of Service January 09, 2019 Assessment & Plan (1) Abnormal LFTs (liver function tests): Pt is a 28 year old female, 32 weeks , admitted w/ oral yeast and inability to tolerate PO due to oral discomfort. GI following for elevated LFTs. Workup included liver u/s which is unremarkable. HBV, HCV negative but she's not immune to Hep B. HAV pending. HIV negative. 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 Other viral serologies, bile acid negative. Pt has been mentally stable, not jaundiced, LFTs trending down. No other concerning GI symptoms such as abd pain, n/v. No contraindication for DC from GI standpoint. Would recommend continue checking LFTs till normalize at least 2x a week. F/U remaining viral serology results. Antifungal management per ID team. Supervising Physician Co-Signing Physician Notes I have seen and examined the patient and discussed the management with SLOAN Conti. The patient is alert and oriented to person, place and time this afternoon, palpable left submandibular lymph node, no vesiscles noted on her skin. No complaints of confusion, pruritus today or over the past few days. LFT's downtrending. HSV PCR reportedly detected though no quant level and EBV dna level detected- viral load around 2000. Would consider she may have had EBV hepatitis given detectable lymph node on physical exam, elevated lft's, and detectable viral load - this will likely resolve on its own. The significance of the HSV PCR being detectable with a normal mental status, absence of vesicles on her skin and downtrending lft's is hard to say. If her lft's were to rise, consideration of empiric acyclovir could be considered- it is thought to be a class B category. Subjective Pt reports still having having trouble with mouth sores and difficulty eating. Denies any abd pain/cramping, n/v. Noted LFTs trending down. HSV I PCR positive. Review of Systems Review of Systems: All systems reviewed & are unremarkable except as noted in HPI & below Constitutional: as per Subjective / HPI Ear, Nose, Mouth, Throat: as per Subjective / HPI Respiratory: no cough and no dyspnea Cardiovascular: no chest pain, no lightheadedness and no edema Gastrointestinal: no abdominal pain, no heartburn, no nausea, no vomiting, no hematemesis, no pain with swallowing, no dysphagia, no cramping, no change in stools and no melena Physical Exam Constitutional: WD/WN, vitals as above well groomed, cooperative and comfortable Eyes: PERRL, conjunctivae normal, anicteric sclerae ENMT: external ear and nose normal, oropharynx normal Respiratory: normal respiratory effort, lungs clear to auscultation Cardiovascular: RRR, no murmur, no edema Gastrointestinal (Abdomen): normal bowel sounds, soft, nontender, no hepatosplenomegaly Pt is 32 weeks Skin: no rashes, warm and dry no jaundice Neurologic: Motor/Sensory: no asterixis Psychiatric: A+Ox3, euthymic affect Lymphatic: no lymphedema Results & Data Vital Signs (Past 12 Hours) Vital Signs Temp Pulse Pulse Resp BP Pulse Ox 01/09/19 08:00 36.8 C 88 18 101/61 96 01/09/19 03:45 36.3 C L 85 18 117/77 97 01/08/19 23:10 36.7 C 88 18 127/87 98
[2019-01-09] MEDS: OXYCODONE HCL IR 5 MG TAB (IMMEDIATE RELEASE) PO PRN ×2 (12:16→18:30)
[2019-01-09 13:15] LABS: CMV DNA Qnt Real Time PCR <200 IU/mL (<200); CMV DNA Quant PCR <2.30 log IU/mL (<2.30); CMV IgG Antibody <0.60 U/ML; CMV IgM Antibody <30.00 Au/mL; EBV DNA Quant PCR 2579 copies/mL (<200); EBV DNA Quant Source Whole Blood
--- NOTE | 2019-01-09 14:37 | Infectious Disease Progress Nt ---
Date of Service January 09, 2019 Assessment & Plan (1) Candidiasis of mouth and esophagus: 28-year-old female with cerebral palsy now 32 weeks and presents with acute oral pain, white oral exudate, and fever consistent with diagnosis of acute oral candidiasis. HSV PCR positive, it is possible that we are dealing with primary herpes simplex 1 infection. EBV PCR of unclear significance, additional serologies ordered. Would recommend use of acyclovir or valacyclovir, but would defer to OB service for use in . (2) Pharyngitis due to herpes simplex virus (HSV): Subjective Patient seen in follow-up for possible oral candidiasis. Mouth pain slowly improving. No fever. HSV PCR positive. No other new specific complaints. Review of Systems Review of Systems: All systems reviewed & are unremarkable except as noted in HPI & below Physical Exam Constitutional: WD/WN, vitals as above comfortable; no acute distress Eyes: PERRL, conjunctivae normal, anicteric sclerae ENMT: external ear and nose normal, oropharynx normal Ears: no external ear abnormality Nose: no external nose abnormality Mouth: + oropharynx abnormality (Oral inflammation and tongue coating) Neck: trachea midline, no thyromegaly neck nontender Respiratory: normal respiratory effort, lungs clear to auscultation normal percussion; does not use accessory muscles Cardiovascular: Rate/Rhythm: regular rate and regular rhythm Heart Sounds: normal S1 and normal S2; no gallop, no murmur and no cardiac rub Vessels: normal peripheral pulses; no JVD Gastrointestinal (Abdomen): normal bowel sounds, soft, nontender, no hepatosplenomegaly Musculoskeletal: no cyanosis or clubbing, extremities motor strength 5/5 Spine: thoracic spine normal to inspection and lumbar spine normal to inspection; no cervical spinal tenderness Skin: no rashes, warm and dry normal turgor; no lesions Neurologic: patellar DTR's 2+ bilat, sensation intact no focal motor deficits Psychiatric: A+Ox3, euthymic affect Orientation: cooperative Lymphatic: no cervical or axillary lymphadenopathy no inguinal lymphadenopathy Results & Data Vital Signs (Past 12 Hours) Vital Signs Temp Pulse Pulse Resp BP Pulse Ox 01/09/19 08:00 36.8 C 88 18 101/61 96 01/09/19 03:45 36.3 C L 85 18 117/77 97 Laboratory Results Short CBC 01/09/19 Range/Units 06:14 WBC 8.06 (4.8-10.8) K/uL Hgb 8.6 L (12.0-16.0) g/dL Hct 25.9 L (37-47) % Plt Count 308 (130-400) K/uL BMP 01/09/19 06:14 Sodium 139 Potassium 3.7 Chloride 108 H Carbon Dioxide 28 BUN < 1 L Creatinine 0.31 L Glucose 73 Calcium 7.9 L Liver Function 01/09/19 Range/Units 06:14 Total Bilirubin 0.6 (0.2-1) mg/dl Direct Bilirubin 0.3 H (0-0.2) mg/dl AST 67 H (15-37) U/L ALT 149 H (12-78) U/L Alkaline Phosphatase 113 (45-117) U/L Albumin 1.8 L (3.4-5.0) gm/dl Diagnostic Findings Microbiology 01/05/19 15:55 Face Gram Stain - Final 01/05/19 15:55 Face Aerobic and Anaerobic Culture - Preliminary Alpha strep. not pneumoniae Prevotella melaninogenica 01/05/19 15:45 Throat Group A Streptococcus Rapid Screen - Final Specimen negative for Group A Beta Strep by rapid method. Culture report to follow. 01/05/19 15:45 Throat Group A Beta-Hemolytic Strep Cult - Final No Group A Beta Strep isolated. 01/05/19 16:07 Blood Blood Culture - Preliminary No growth to date. 01/05/19 16:01 Blood Blood Culture - Preliminary No growth to date.
[2019-01-09] MEDS ORDERED: PERCOCET 5/325MG HOMEPACK PO ONE (18:02)
--- NOTE | 2019-01-09 18:08 | Progress Note ---
Date of Service January 09, 2019 Assessment & Plan (1) Pharyngitis due to herpes simplex virus (HSV): OB/NOTE pt doing well Reviewed notes from GI and ID Pt will be discharged home Rx for needs + Valtrex Results & Data Vital Signs (Past 12 Hours) Vital Signs Temp Pulse Pulse Resp BP BP Pulse Ox 01/09/19 14:05 36.7 C 82 16 99/64 L 97 01/09/19 08:00 36.8 C 88 18 101/61 96
[2019-01-09] MEDS ORDERED: OXYCODONE IR HOME PACK PO ONE (18:18)
[2019-01-11 20:16] LABS: Total Bile Acids <1.5 umol/L (< OR = 6.8)
--- OUTSIDE RECORDS SUMMARY | 2019-01-12 15:32 | External Medical Summary | Continuity of Care Document ---
:1990 Author Name Tahmina Hanna Address Unavailable Unavailable , Care Team Providers Name Role Phone Marya Saul M.D. Unavailable [email or web address] Active medical history not documented Allergies and Adverse Reactions Allergy history not documented Medications Medications not documented Procedures Procedures not documented Immunizations Immunizations not documented Plan of Treatment Planned Observations Planned Goals not documented Results No Known Results Results not documented
--- NOTE | 2019-01-14 23:14 | Discharge Summary ---
DATE OF ADMISSION: 01/05/2019 DATE OF DISCHARGE: 01/09/2019 HISTORY OF PRESENT ILLNESS: This is a 28-year-old G2, P1 at 38 weeks , previous history of cerebral palsy and had delivery 10 months ago. This has been unremarkable and she was being seen at [facility] in [place] for care. The patient experienced severe thrush and went to see a dentist in [place]. She was started on Nystatin oral switch and swallow. She received penicillin and acyclovir. Her symptoms, however, did not improve and was worsening. Decision was therefore made for her to come to [facility] ER. During the ER evaluation, decision was made to admit patient. The patient could not eat or swallow and she was . P[employer] MACHINE [employer]PERATOR admitted the patient. During the admission, she required infectious disease as well as medical consultation. Patient was continued on medications to treat her thrush. Workup resulted in elevated LFTs. She had no other preeclamptic symptoms. We had a discussion with maternal medicine. Decision was to continue to manage patient. Her LFTs improved dramatically each day while she continued to be treated for her thrush. NST every day was reactive. The patient was eventually discharged home on 01/09/2019 in stable condition with improved LFTs and improved thrush. Plan is for the patient to follow up with her PUNCH MACHINE OPERATOR in [place]. PAST MEDICAL HISTORY: The patient has history of cerebral palsy, asthma and seizures. PAST SURGICAL HISTORY: History of shoulder surgery, tonsillectomy and adenoid removal. ALLERGIES: PATIENT IS ALLERGIC TO SULFA AND CEFZIL. MEDICATIONS: The patient was on Ventolin, Pulmicort, Zyrtec, Flovent, Atrovent, Tamiflu and prednisone. SOCIAL HISTORY: The patient denies tobacco, drug or alcohol use. FAMILY HISTORY: Noncontributory. PHYSICAL EXAMINATION: GENERAL: White female, in no acute distress. HEENT: On oral exam, the patient has white plaque through oral cavity and oropharynx. HEART: S1, S2, regular rhythm and rate. LUNGS: Clear to auscultation bilaterally. ABDOMEN: Gravid. Bedside ultrasound done showed there to be gestation with appropriate growth. EXTREMITIES: No cyanosis, clubbing or edema. VITAL SIGNS: On 01/09/2019 showed a blood pressure of 101/61, pulse of 88, respiration of 18, temperature of 36.7. LABS: On 01/09/2019: Hemoglobin was 8.6, hematocrit was 25.9. Chemistry, LFTs was AST was 67, ALT was 164. A remarkable improvement from what they were on admission, on admission they were in the 400s. CONDITION ON DISCHARGE: Stable. OPERATION: None. DISCHARGE DIAGNOSES: 1. Oral thrush, severe thrush in . 2. Elevated liver enzymes. PLAN ON DISCHARGE: Patient is discharged home with instructions regarding activity, diet, followup appointment and medication.
== END 2019-01-09 19:35 | disposition home or self-care (01) | DRG 832 ==
LOC: ED 14:59 → 4S2 22:20